=== PATIENT | male | born 1960 | race Caucasian/White ===

== ENCOUNTER 2018-11-26 09:13 | Inpatient (IN) | payer BC ==
[2018-11-26 09:47] LABS: Basophils % (A) 0 %; Eosinophils # (A) 0.2 k/uL (0-0.7); Eosinophils % (A) 3 %; HCT 42.5 % (39.0-53.0); HGB 14.2 gm/dL (13.0-17.5); Lymphocytes # (A) 2.4 k/uL (1.0-4.8); Lymphocytes % (A) 31 %; MCH 27.9 pg (25.0-35.0); MCHC 33.5 g/dL (31.0-37.0); MCV 83.3 fL (80.0-100.0); Mean Platelet Volume 6.9; Monocytes # (A) 0.5 k/uL (0-1.0); Monocytes % (A) 6 %; Neutrophils # (A) 4.5 k/uL (1.3-7.7); Neutrophils % (A) 58 %; Platelet Count 240 k/uL (150-450); RDW 13.9 % (11.5-15.5); WBC 7.8 k/uL (3.8-10.6)
[2018-11-26 09:54] LABS: Partial Thromboplastin Time 23.7 sec (22.0-30.0); Prothrombin Time 10.8 sec (9.0-12.0)
[2018-11-26 10:09] LABS: ALT 20 U/L (21-72); AST 27 U/L (17-59); African American GFR (CKD) >90 (>60 ml/min/1.73 sqM); Albumin 4.4 g/dL (3.5-5.0); Alkaline Phosphatase 102 U/L (38-126); Anion Gap 9 mmol/L; Blood Urea Nitrogen 21 mg/dL (9-20); Calcium 9.3 mg/dL (8.4-10.2); Carbon Dioxide 25 mmol/L (22-30); Chloride 105 mmol/L (98-107); Creatine Kinase 91 U/L (55-170); Glucose 101 mg/dL (74-99); Potassium 4.6 mmol/L (3.5-5.1); Sodium 139 mmol/L (137-145); Total Bilirubin 0.9 mg/dL (0.2-1.3); Total Protein 7.7 g/dL (6.3-8.2)
--- NOTE | 2018-11-26 10:14 | XR ---
EXAMINATION TYPE: XR chest 2V DATE OF EXAM: 11/26/2018 COMPARISON: None HISTORY: 58 year-old male shortness of breath, difficulty breathing TECHNIQUE: PA and lateral views FINDINGS: The cardiomediastinal silhouette, aorta, and pulmonary vasculature are within normal limits. Lungs an d pleural spaces are clear. Large surgical shailesh at the right glenoid. IMPRESSION: No acute cardiopulmonary process.
--- NOTE | 2018-11-26 10:28 | ED ---
SOB HPI - General Chief Complaint: Shortness of Breath Stated Complaint: Abn EKG/sent by PCP Time Seen by Provider: 11/26/18 09:19 Source: patient Mode of arrival: ambulatory Limitations: no limitations - History of Present Illness Initial Comments: This is a 58-year-old male with a benign past medical history who for the past 5 days had exertional dyspnea which seems be getting worse. He states he golfed yesterday and extremely dyspneic just getting on and off his golf cart. He also has some slight dizziness this morning. He was seen at his doctor's office and found have some T-wave inversions. Concern is for LAD involvement. He's had no chest pain no palpitations no other symptoms. - Related Data Home Medications Medication Instructions Recorded Confirmed Celecoxib [CeleBREX] 200 mg PO HS 11/26/18 11/26/18 Cyclobenzaprine [Flexeril] 10 mg PO DAILY 11/26/18 11/26/18 Dorzolamide-Timol 2.23%/0.68% 1 drop BOTH EYES BID 11/26/18 11/26/18 [Cosopt] Latanoprost [Xalatan 0.005%] 1 drop BOTH EYES HS 11/26/18 11/26/18 Allergies Allergy/AdvReac Type Severity Reaction Status Date / Time meperidine [From Demerol] Allergy Unknown Verified 11/26/18 09:19 Review of Systems ROS Statement: Those systems with pertinent positive or pertinent negative responses have been documented in the HPI. ROS Other: All systems not noted in ROS Statement are negative. Past Medical History Additional Past Medical History / Comment(s): ARTHRITIS. Past Surgical History: Appendectomy, Orthopedic Surgery Additional Past Surgical History / Comment(s): SHOULDER SURGERY, KNEE SURGERY Past Psychological History: No Psychological Hx Reported Smoking Status: Never smoker Past Alcohol Use History: Occasional Past Drug Use History: None Reported General Exam - General Exam Comments Initial Comments: This is a well-developed well-nourished awake alert oriented times 3 male Limitations: no limitations General appearance: alert, in no apparent distress Head exam: Present: atraumatic, normocephalic, normal inspection Eye exam: Present: normal appearance, PERRL, EOMI. Absent: scleral icterus, conjunctival injection, periorbital swelling ENT exam: Present: normal exam, mucous membranes moist Neck exam: Present: normal inspection. Absent: tenderness, meningismus, lymphadenopathy Respiratory exam: Present: normal lung sounds bilaterally. Absent: respiratory distress, wheezes, rales, rhonchi, stridor Cardiovascular Exam: Present: regular rate, normal rhythm, normal heart sounds. Absent: systolic murmur, diastolic murmur, rubs, gallop, clicks GI/Abdominal exam: Present: soft, normal bowel sounds. Absent: distended, ten derness, guarding, rebound, rigid Extremities exam: Present: normal inspection, full ROM, normal capillary refill. Absent: tenderness, pedal edema, joint swelling, calf tenderness Back exam: Present: normal inspection Neurological exam: Present: alert, oriented X3, CN II-XII intact Psychiatric exam: Present: normal affect, normal mood Skin exam: Present: warm, dry, intact, normal color. Absent: rash Course Vital Signs 11/26/18 09:16 Temperature 97.9 F Pulse Rate 93 Respiratory 18 Rate Blood Pressure 102/72 O2 Sat by Pulse 98 Oximetry Medical Decision Making - Medical Decision Making I did discuss the findings with the patient had previously discuss case with Dr. Young the patient will be admitted for evaluation by cardiology Dr. Young will notify Dr. Solorio of the admission. - Lab Data Result diagrams: 11/26/18 09:30 11/26/18 09:30 Lab Results 11/26/18 11/26/18 11/26/18 Range/Units 09:30 09:30 09:30 WBC 7.8 (3.8-10.6) k/uL RBC 5.10 (4.30-5.90) m/uL Hgb 14.2 (13.0-17.5) gm/dL Hct 42.5 (39.0-53.0) % MCV 83.3 (80.0-100.0) fL MCH 27.9 (25.0-35.0) pg MCHC 33.5 (31.0-37.0) g/dL RDW 13.9 (11.5-15.5) % Plt Count 240 (150-450) k/uL Neutrophils % 58 % Lymphocytes % 31 % Monocytes % 6 % Eosinophils % 3 % Basophils % 0 % Neutrophils # 4.5 (1.3-7.7) k/uL Lymphocytes # 2.4 (1.0-4.8) k/uL Monocytes # 0.5 (0-1.0) k/uL Eosinophils # 0.2 (0-0.7) k/uL Basophils # 0.0 (0-0.2) k/uL PT (9.0-12.0) sec INR (<1.2) APTT (22.0-30.0) sec Sodium 139 (137-145) mmol/L Potassium 4.6 (3.5-5.1) mmol/L Chloride 105 (98-107) mmol/L Carbon Dioxide 25 (22-30) mmol/L Anion Gap 9 mmol/L BUN 21 H (9-20) mg/dL Creatinine 1.05 (0.66-1.25) mg/dL Est GFR (CKD-EPI)AfAm >90 (>60 ml/min/1.73 sqM) Est GFR (CKD-EPI)NonAf 78 (>60 ml/min/1.73 sqM) Glucose 101 H (74-99) mg/dL Calcium 9.3 (8.4-10.2) mg/dL Magnesium 2.0 (1.6-2.3) mg/dL Total Bilirubin 0.9 (0.2-1.3) mg/dL AST 27 (17-59) U/L ALT 20 L (21-72) U/L Alkaline Phosphatase 102 (38-126) U/L Creatine Kinase 91 (55-170) U/L NT-Pro-B Natriuret Pep 1480 pg/mL Total Protein 7.7 (6.3-8.2) g/dL Albumin 4.4 (3.5-5.0) g/dL 11/26/18 Range/Units 09:30 WBC (3.8-10.6) k/uL RBC (4.30-5.90) m/uL Hgb (13.0-17.5) gm/dL Hct (39.0-53.0) % MCV (80.0-100.0) fL MCH (25.0-35.0) pg MCHC (31.0-37.0) g/dL RDW (11.5-15.5) % Plt Count (150-450) k/uL Neutrophils % % Lymphocytes % % Monocytes % % Eosinophils % % Basophils % % Neutrophils # (1.3-7.7) k/uL Lymphocytes # (1.0-4.8) k/uL Monocytes # (0-1.0) k/uL Eosinophils # (0-0.7) k/uL Basophils # (0-0.2) k/uL PT 10.8 (9.0-12.0) sec INR 1.0 (<1.2) APTT 23.7 (22.0-30.0) sec Sodium (137-145) mmol/L Potassium (3.5-5.1) mmol/L Chloride (98-107) mmol/L Carbon Dioxide (22-30) mmol/L Anion Gap mmol/L BUN (9-20) mg/dL Creatinine (0.66-1.25) mg/dL Est GFR (CKD-EPI)AfAm (>60 ml/min/1.73 sqM) Est GFR (CKD-EPI)NonAf (>60 ml/min/1.73 sqM) Glucose (74-99) mg/dL Calcium (8.4-10.2) mg/dL Magnesium (1.6-2.3) mg/dL Total Bilirubin (0.2-1.3) mg/dL AST (17-59) U/L ALT (21-72) U/L Alkaline Phosphatase (38-126) U/L Creatine Kinase (55-170) U/L NT-Pro-B Natriuret Pep pg/mL Total Protein (6.3-8.2) g/dL Albumin (3.5-5.0) g/dL - EKG Data -: EKG Interpreted by Ca EKG shows normal: sinus rhythm (Normal sinus rhythm 89. Interval 192 QRS duration 72 QT since QTC 392/[address]-T wave changes nonspecific anterior configuration) - Radiology Data Radiology results: report reviewed (I did review the imaging and report no acute findings.), image reviewed Disposition Clinical Impression: Unstable angina, Exertional dyspnea, Acute electrocardiogram changes Disposition: ADMITTED IP TO THIS [facility] Condition: Stable Referrals: Claus Young MD [Primary Care Provider] - 1-2 days
[2018-11-26] MEDS ORDERED: NITROGLYCERIN SL TABS 0.4 MG TAB SUBLINGUAL PRN (10:37)
[2018-11-26] MEDS ORDERED: HEPARIN SODIUM,PORCINE 5,000 UNIT/ML 1 ML VIAL IV ONE (10:37)
[2018-11-26] MEDS ORDERED: HEPARIN SOD,PORK IN 0.45% NACL 25,000 UNIT in 0.45% NACL 1 250ML.BAG IV SCH (10:45)
--- NOTE | 2018-11-26 10:51 | ED ---
Medical Decision Making - Lab Data Result diagrams: 11/26/18 09:30 11/26/18 09:30 Lab Results 11/26/18 11/26/18 11/26/18 Range/Units 09:30 09:30 09:30 WBC 7.8 (3.8-10.6) k/uL RBC 5.10 (4.30-5.90) m/uL Hgb 14.2 (13.0-17.5) gm/dL Hct 42.5 (39.0-53.0) % MCV 83.3 (80.0-100.0) fL MCH 27.9 (25.0-35.0) pg MCHC 33.5 (31.0-37.0) g/dL RDW 13.9 (11.5-15.5) % Plt Count 240 (150-450) k/uL Neutrophils % 58 % Lymphocytes % 31 % Monocytes % 6 % Eosinophils % 3 % Basophils % 0 % Neutrophils # 4.5 (1.3-7.7) k/uL Lymphocytes # 2.4 (1.0-4.8) k/uL Monocytes # 0.5 (0-1.0) k/uL Eosinophils # 0.2 (0-0.7) k/uL Basophils # 0.0 (0-0.2) k/uL PT (9.0-12.0) sec INR (<1.2) APTT (22.0-30.0) sec Sodium 139 (137-145) mmol/L Potassium 4.6 (3.5-5.1) mmol/L Chloride 105 (98-107) mmol/L Carbon Dioxide 25 (22-30) mmol/L Anion Gap 9 mmol/L BUN 21 H (9-20) mg/dL Creatinine 1.05 (0.66-1.25) mg/dL Est GFR (CKD-EPI)AfAm >90 (>60 ml/min/1.73 sqM) Est GFR (CKD-EPI)NonAf 78 (>60 ml/min/1.73 sqM) Glucose 101 H (74-99) mg/dL Calcium 9.3 (8.4-10.2) mg/dL Magnesium 2.0 (1.6-2.3) mg/dL Total Bilirubin 0.9 (0.2-1.3) mg/dL AST 27 (17-59) U/L ALT 20 L (21-72) U/L Alkaline Phosphatase 102 (38-126) U/L Creatine Kinase 91 (55-170) U/L Troponin I (0.000-0.034) ng/mL NT-Pro-B Natriuret Pep 1480 pg/mL Total Protein 7.7 (6.3-8.2) g/dL Albumin 4.4 (3.5-5.0) g/dL 11/26/18 11/26/18 Range/Units 09:30 09:30 WBC (3.8-10.6) k/uL RBC (4.30-5.90) m/uL Hgb (13.0-17.5) gm/dL Hct (39.0-53.0) % MCV (80.0-100.0) fL MCH (25.0-35.0) pg MCHC (31.0-37.0) g/dL RDW (11.5-15.5) % Plt Count (150-450) k/uL Neutrophils % % Lymphocytes % % Monocytes % % Eosinophils % % Basophils % % Neutrophils # (1.3-7.7) k/uL Lymphocytes # (1.0-4.8) k/uL Monocytes # (0-1.0) k/uL Eosinophils # (0-0.7) k/uL Basophils # (0-0.2) k/uL PT 10.8 (9.0-12.0) sec INR 1.0 (<1.2) APTT 23.7 (22.0-30.0) sec Sodium (137-145) mmol/L Potassium (3.5-5.1) mmol/L Chloride (98-107) mmol/L Carbon Dioxide (22-30) mmol/L Anion Gap mmol/L BUN (9-20) mg/dL Creatinine (0.66-1.25) mg/dL Est GFR (CKD-EPI)AfAm (>60 ml/min/1.73 sqM) Est GFR (CKD-EPI)NonAf (>60 ml/min/1.73 sqM) Glucose (74-99) mg/dL Calcium (8.4-10.2) mg/dL Magnesium (1.6-2.3) mg/dL Total Bilirubin (0.2-1.3) mg/dL AST (17-59) U/L ALT (21-72) U/L Alkaline Phosphatase (38-126) U/L Creatine Kinase (55-170) U/L Troponin I 0.084 H* (0.000-0.034) ng/mL NT-Pro-B Natriuret Pep pg/mL Total Protein (6.3-8.2) g/dL Albumin (3.5-5.0) g/dL Disposition Clinical Impression: Unstable angina, Exertional dyspnea, Acute electrocardiogram changes, Elevated troponin Disposition: ADMITTED IP TO THIS HOSP Condition: Stable
[2018-11-26] MEDS: SODIUM CHLORIDE 0.9% 1,000 ML IV SCH (12:07)
[2018-11-26] MEDS ORDERED: HEPARIN SODIUM,PORCINE 10,000 UNIT/ML 1 ML VIAL IV ONE (16:00)
[2018-11-26] MEDS ORDERED: HEPARIN SODIUM,PORCINE 5,000 UNIT/ML 1 ML VIAL IV PRN (16:00)
--- NOTE | 2018-11-26 16:00 | CT ---
EXAMINATION TYPE: CT angio chest DATE OF EXAM: 11/26/2018 3:44 PM COMPARISON: None HISTORY: Shortness of breath. CT DLP: 352.7 mGycm Automated exposure control for dose reduction was used. CONTRAST: CTA scan of the thorax is performed with IV Contrast, patient injected with 100 mL of Isovue 370, pul monary embolism protocol. . FINDINGS: LUNGS: There is a subpleural nodule left upper lobe measuring 2 mm. No pneumothorax or consolidative pneumonia. A bleb is seen within the left lower lobe. Correlate for mild COPD.. There is no pleural effusion or pneumothorax seen. The tracheobronchial tree is patent. MEDIASTINUM: There is bilateral large acute pulmonary embolism involving the main pulmonary arteries bilaterally extending in the secondary and distal branches. Report called to the patient's nurse. The re are no greater than 1 cm hilar or mediastinal lymph nodes. No pericardial effusion is seen. Aort a of normal caliber. OTHER: Degenerative change of the spine. Postsurgical change right shoulder. IMPRESSION: 1. Large burden acute bilateral pulmonary emboli involving the main pulmonary arteries and their seco ndary and distal branches bilaterally. Report immediately called to the patient's nurse. 2. Left apical subpleural 2 mm nodule too small to characterize likely benign.
[2018-11-26] MEDS: HEPARIN SOD,PORK IN 0.45% NACL 25,000 UNIT in 0.45% NACL 1 250ML.BAG IV SCH (16:14)
[2018-11-26 16:58] LABS: Glucose,Whole Blood 127 mg/dL (75-99)
--- NOTE | 2018-11-26 17:01 | P.CNPUL ---
History of Present Illness Consult date: 11/26/18 Requesting physician: Justin Solorio Reason for consult: dyspnea, abnormal CXR/CT Chief complaint: Exertional shortness of breath, dizziness History of present illness: This is a very pleasant 58-year-old gentleman who follows with Dr. Young as his primary care physician. He has a history of arthritis, insomnia. He is a lifelong nonsmoker. He presented to the emergency room this morning after a 5 day history of exertional shortness of breath that was getting progressively worse. He was out golfing yesterday and was getting quite short of breath even getting on and off his cough car. This morning he had some dizziness as well. He was seen by his PCP who performed EKG and found to have some T-wave inversions and was referred here to the emergency room for the same. No chest pain or palpitations. EKG revealed nonspecific ST and T wave abnormalities. He was admitted to the selective care unit for unstable angina with exertional shortness of breath. Troponin 0.084. 0.049. ProBNP 1480. D-dimer elevated at 6.89. CT angiogram was performed at 3:45 PM and revealed large burden acute bilateral pulmonary emboli involving the main pulmonary arteries and their secondary and distal branches bilaterally. We are consulted for the same. He is now seen urgently on the selective care unit. He is currently quite comfortable at rest. No worsening shortness of breath, cough or congestion. No hemoptysis. No chest pain, palpitations, lightheadedness or dizziness at the time. Maintaining good O2 saturations in the 90s on room air. Currently hemodynamically stable. His most recent travel was 2 months ago to [facility]. He does drive an hour and a half to work each day but is active after that. No recent surgery. No recent trauma. He feels he did have some left lower extremity edema a few days ago. No pain redness or warmth. No history of cancer. He does have a sister who has an unprovoked PE and is currently under treatment. He has been initiated on a heparin drip. Review of Systems REVIEW OF SYSTEMS: CONSTITUTIONAL: Denies any recent significant weight loss or weight gain. EYES: Denies change in vision. EARS, NOSE, MOUTH, THROAT: Denies headaches, denies sore throat. CARDIOVASCULAR: Denies chest pain, palpitations or syncopal episodes. RESPIRATORY: Positive for shortness of breath, cough, congestion no hemoptysis. GASTROINTESTINAL: Denies change in appetite, denies abdominal pain GENITOURINARY: Denies hematuria, denies infections. MUSKULOSKELETAL: Denies pain, denies swelling. INTEGUMENTARY: Denies rash, denies eczema. NEUROLOGICAL: Denies recent memory loss, no recent seizure activity. PSYCHIATRIC: Denies anxiety, denies depression. HEMATOLOGIC/LYMPHATIC: Denies anemia, denies enlarged lymph nodes. Past Medical History Past Medical History: Eye Disorder, Fibromyalgia, Hyperlipidemia, Osteoarthritis (OA), Skin Disorder Additional Past Medical History / Comment(s): ARTHRITIS. History of Any Multi-Drug Resistant Organisms: None Reported Past Surgical History: Appendectomy, Orthopedic Surgery Additional Past Surgical History / Comment(s): SHOULDER SURGERY, KNEE SURGERY Past Anesthesia/Blood Transfusion Reactions: No Reported Reaction Past Psychological History: No Psychological Hx Reported Smoking Status: Never smoker Past Alcohol Use History: Occasional Past Drug Use History: None Reported - Past Family History Father Family Medical History: CVA/TIA, Vascular Disorder Additional Family Medical History / Comment(s): Father at the age of 67yrs possibly from CVA, valvular disease. Mother Family Medical History: Coronary Artery Disease (CAD) Additional Family Medical History / Comment(s): Mother at the age of 84 yrs from "old age." Medications and Allergies Home Medications Medication Instructions Recorded Confirmed Type Celecoxib [CeleBREX] 200 mg PO HS 11/26/18 11/26/18 History Cyclobenzaprine [Flexeril] 10 mg PO DAILY 11/26/18 11/26/18 History Dorzolamide-Timol 2.23%/0.68% 1 drop BOTH EYES BID 11/26/18 11/26/18 History [Cosopt] Latanoprost [Xalatan 0.005%] 1 drop BOTH EYES HS 11/26/18 11/26/18 History Allergies Allergy/AdvReac Type Severity Reaction Status Date / Time meperidine [From Demerol] Allergy Unknown Verified 11/26/18 09:19 Physical Exam Vitals: Vital Signs Temp Pulse Pulse Resp BP BP Pulse Ox 11/26/18 15:06 98.9 F 11/26/18 15:03 85 18 129/73 91 L 11/26/18 12:00 97.8 F 94 16 106/62 97 11/26/18 11:02 93 18 107/77 96 11/26/18 09:16 97.9 F 93 18 102/72 98 Intake and Output 11/26/18 11/26/18 11/26/18 06:59 14:59 22:59 Intake Total 220 Balance 220 Intake: Oral 220 Other: Weight 87.09 kg GENERAL EXAM: Alert, comfortable in no apparent distress. On room air. HEAD: Normocephalic. EYES: Normal reaction of pupils, equal size. NOSE: Clear with pink turbinates. THROAT: No erythema or exudates. NECK: No masses, no JVD. CHEST: No chest wall deformity. LUNGS: Equal air entry with no crackles, wheeze, rhonchi or dullness. CVS: S1 and S2 normal with no audible murmur, regular rhythm. ABDOMEN: No hepatosplenomegaly, normal bowel sounds, no guarding or rigidity. SPINE: No scoliosis or deformity SKIN: No rashes CENTRAL NERVOUS SYSTEM: No focal deficits, tone is normal in all 4 extremities. EXTREMITIES: There is no peripheral edema. No clubbing, no cyanosis. Peripheral pulses are intact. Results - Laboratory Findings CBC and BMP: 11/26/18 09:30 11/26/18 09:30 PT/INR, D-dimer PT 10.8 sec (9.0-12.0) 11/26/18 09:30 INR 1.0 (<1.2) 11/26/18 09:30 D-Dimer 6.89 mg/L FEU (<0.60) H 11/26/18 09:30 Abnormal lab findings: Abnormal Labs 11/26/18 11/26/18 11/26/18 09:30 09:30 09:30 D-Dimer 6.89 H BUN 21 H Glucose 101 H ALT 20 L Troponin I 0.084 H* 11/26/18 15:08 D-Dimer BUN Glucose ALT Troponin I 0.049 H* - Diagnostic Findings Chest x-ray: image reviewed CT scan - chest: image reviewed Assessment and Plan Assessment: Impression: #1 Dyspnea on exertion secondary to large bilateral pulmonary emboli involving the main pulmonary arteries and their secondary and distal branches bilaterally. Initially appears unprovoked. Doppler of the lower extremities pending. Echocardiogram results pending. #2 Troponin leak. #3 History of insomnia. #4 Arthritis. Plan: The patient was seen and evaluated by Dr. Christopher. CAT scan reviewed. We will give additional heparin bolus and change him to a high intensity protocol. Obtain Doppler of the lower extremities. Obtain echocardiogram results stat to determine if there is any right ventricular strain. Will need outpatient workup for any underlying blood dyscrasias. He does have 1 sister with an unprovoked PE currently under treatment. Transfer to the intensive care unit for closer monitoring, if there is any deterioration in his clinical status may need TPA versus transfer for EKOS. We will continue to follow make further recommendations based on his clinical status. I, the cosigning physician, performed a history & physical examination of the patient. Lungs sounds are clear. Maintaining good O2 saturations in the 90s on room air. I discussed the assessment and plan of care with my nurse practit vesna, Gianna Silva. I attest to the above note as dictated by her. Time with Patient: Greater than 30
--- NOTE | 2018-11-26 18:09 | ECHOF ---
Referral Reason:Exertional dyspnea, EKG change MEASUREMENTS -------- HEIGHT: 170.2 cm WEIGHT: 87.1 kg BP: RVIDd: 4.2 cm (< 3.3) IVSd: 1.1 cm (0.6 - 1.1) LVIDd: 3.1 cm (3.9 - 5.3) LVPWd: 1.0 cm (0.6 - 1.1) IVSs: 1.7 cm LVIDs: 1.8 cm LVPWs: 1.7 cm Ao Diam: 3.2 cm (2.0 - 3.7) AV Cusp: 2.2 cm (1.5 - 2.6) LA Diam: 3.0 cm (2.7 - 3.8) MV EXCURSION: 10.412 mm (> 18.000) MV EF SLOPE: 56 mm/s (70 - 150) EPSS: 0.7 cm MV E Delonte: 0.83 m/s MV DecT: 222 ms MV A Delonte: 0.32 m/s MV E/A Ratio: 2.60 RAP: 5.00 mmHg RVSP: 29.08 mmHg FINDINGS -------- Sinus rhythm. This was a technically good study. The left ventricular size is normal. Left ventricular wall thickness is normal. Overall left vent ricular systolic function is normal with, an EF between 55 - 60 %. The right ventricle is severely enlarged. The right ventricular systolic function is mildly impaire d. The left atrial size is normal. The right atrial size is normal. Interatrial and interventricular septum intact. The aortic valve is trileaflet, and appears structurally normal. No aortic stenosis or regurgitation. The mitral valve is normal. Mild mitral regurgitation is present. Mild tricuspid regurgitation present. Right ventricular systolic pressure is normal at < 35 mmHg. The right ventricular systolic pressure, as measured by Doppler, is 29.08mmHg. There is no pulmonic regurgitation present. The aortic root size is normal. Normal inferior vena cava with normal inspiratory collapse consistent with estimated right atrial pre ssure of 5 mmHg. There is no pericardial effusion. CONCLUSIONS -------- 1. Sinus rhythm. 2. This was a technically good study. 3. The left ventricular size is normal. 4. Left ventricular wall thickness is normal. 5. Overall left ventricular systolic function is normal with, an EF between 55 - 60 %. 6. The right ventricle is severely enlarged. 7. The right ventricular systolic function is mildly impaired. 8. The left atrial size is normal. 9. The aortic valve is trileaflet, and appears structurally normal. No aortic stenosis or regurgitati on. 10. Mild mitral regurgitation is present. 11. Mild tricuspid regurgitation present. 12. Right ventricular systolic pressure is normal at < 35 mmHg. 13. There is no pulmonic regurgitation present. 14. The aortic root size is normal. 15. Normal inferior vena cava with normal inspiratory collapse consistent with estimated right atrial pressure of 5 mmHg. 16. There is no pericardial effusion. RESIDENT BUYER: Kathryn Toro RDCS
--- NOTE | 2018-11-26 18:14 | P.HPIM ---
History of Present Illness H&P Date: 11/26/18 Chief Complaint: Non-ST DC, shortness of breath, hyperlipidemia, hypertension, hyperglycemia 58-year-old male one of Dr. Young's patient with past medical history of lower back pain osteoarthritis and fibromyalgia who has been doing well until the last a few days when he developed to have significant worsening dyspnea and shortness of breath with exertion has been become much worse patient had more symptoms yesterday while he was golfing and having to get in and out of the golf cart was making him more symptomatic. Was seen by Dr. Young EKG showed T waves inversion was concern about acute DC patient was sent to the emergency department CK with troponin was mildly elevated the waves inversion found in EKG patient will be heparinize consult cardiology patient be admitted and might need to go for heart catheter. Shortly after accepting admission surprisingly his d-dimer came back very elevated and PT was sent for CTA of the lung finding consistent with very large bilateral pulmonary embolism. Patient was started on heparin drip and he is hospitalized in the ICU will be seen pulmonary Doppler of the lower extremity be done to exclude the possibility of DVT as well otherwise need a reason for PE whether workup for malignancy are coagulopathy is indicated. Review of Systems CONSTITUTIONAL: Well-developed no acute respiratory distress. EYES: No icterus sclerae, no conjunctivitis. EARS, NOSE, MOUTH, THROAT, and FACE: No sore throat, lymphadenopathy, carotid bruits or deformity. RESPIRATORY: Positive shortness of breath no cough or wheezes. CARDIOVASCULAR: Positive PND orthopnea palpitations. GASTROINTESTINAL: No Abd pain, Nausea or vomiting, no Diarrhea or constipation, No GI Bleed, no distention or masses. GENITOURINARY: Negative for Hematuria or UTI, no kidney stones. INTEGUMENT/BREAST: Negative for any muscular injury with mild osteoarthritis.. HEMATOLOGIC/LYMPHATIC: Negative for bleed or purpura. MUSCULOSKELTAL: Negative for Myalgia or arthralgia. NEURLOGICAL: No LOC, Sz or syncope, blurred vision dizziness or abnormality.. BEHAVIORAL/PSYCH: Negative. ENDOCRINE: Negative. Past Medical History Additional Past Medical History / Comment(s): ARTHRITIS. Past Surgical History: Appendectomy, Orthopedic Surgery Additional Past Surgical History / Comment(s): SHOULDER SURGERY, KNEE SURGERY Past Psychological History: No Psychological Hx Reported Smoking Status: Never smoker Past Alcohol Use History: Occasional Past Drug Use History: None Reported - Past Family History Father Family Medical History: CVA/TIA, Vascular Disorder Additional Family Medical History / Comment(s): Father at the age of 67yrs possibly from CVA, valvular disease. Mother Family Medical History: Coronary Artery Disease (CAD) Additional Family Medical History / Comment(s): Mother at the age of 84 yrs from "old age." Medications and Allergies Home Medications Medication Instructions Recorded Confirmed Type Celecoxib [CeleBREX] 200 mg PO HS 11/26/18 11/26/18 History Cyclobenzaprine [Flexeril] 10 mg PO DAILY 11/26/18 11/26/18 History Dorzolamide-Timol 2.23%/0.68% 1 drop BOTH EYES BID 11/26/18 11/26/18 History [Cosopt] Latanoprost [Xalatan 0.005%] 1 drop BOTH EYES HS 11/26/18 11/26/18 History Allergies Allergy/AdvReac Type Severity Reaction Status Date / Time meperidine [From Demerol] Allergy Unknown Verified 11/26/18 09:19 Physical Exam Vitals: Vital Signs Temp Pulse Resp BP Pulse Ox 11/26/18 11:02 93 18 107/77 96 11/26/18 09:16 97.9 F 93 18 102/72 98 Intake and Output 11/25/18 11/26/18 11/26/18 22:59 06:59 14:59 Other: Weight 87.09 kg General Appearance: Alert, cooperative, mild distress, appears stated age. Neck HEENT: Supple, no lymphadenopathy, no thyroid enlargement, no carotid bruits. Lungs: Clear to auscultation without crackles or wheezes no rhonchi, no deformity. Chest Wall: Decrease expansion with deep inspiration no tenderness and no deformity was found on exam, no costochondral pain or discomfort. Heart: Regular rate and rhythm, S1, S2, positive S3 , no murmur, rub or gallop. Back: Symmetric, no curvature, ROM normal, no CVA tenderness. Abdomen: Soft, non-tender, bowel sounds active all four quadrants, no masses, no organomegaly. Extremities: Extremities normal, atraumatic, but trace edema. Pulses: 2+ and symmetric. Skin: Skin color, texture, tugor normal, no rashes or lesions. Neurologic: Alert oriented x3 cranial nerves II through XII intact, no motor deficit, no abnormal balance or gait. Results CBC & Chem 7: 11/26/18 09:30 11/26/18 09:30 Labs: Abnormal Lab Results - Last 24 Hours (Table) 11/26/18 11/26/18 Range/Units 09:30 09:30 BUN 21 H (9-20) mg/dL Glucose 101 H (74-99) mg/dL ALT 20 L (21-72) U/L Troponin I 0.084 H* (0.000-0.034) ng/mL Thrombosis Risk Factor Assmnt - DVT/VTE Prophylaxis DVT/VTE Prophylaxis: Pharmacologic Prophylaxis ordered, Mechanical Prophylaxis ordered Assessment and Plan Plan: 1 acute bilateral pulmonary embolism: Not clear source at this point and risk factor patient will be seen pulmonary, Doppler lower extremities will be done, further workup for coagulopathy will be done as well. 2 acute non-ST DC: Patient be hospitalized, CK with troponin 3 be done, cardiology consultation, echocardiogram and patient most likely will be going for cardiac catheter for diagnostic and possible need for angioplasty and stent placement of there is any blockage. 3 shortness of breath: Most likely from acute DC causing mild decrease in heart function and mild fluid retention causing his symptoms, kind continue nitro, diuretics and oxygen. 4 hyperlipidemia: Was not any medication we'll consider starting patient on statin like Lipitor 40 mg daily. 5 hyperglycemia: Patient is on diet control Accu-Chek with sliding scales coverage will be done and if needed small dose of metformin might be beneficial. 6 chronic lower back pain: Has been on muscle relaxer and Celebrex on an as- needed basis. 7 GI prophylaxis: Patient will be on Pepcid 20 mg twice a day as needed. 8 DVT prophylaxis: Patient will be on heparin drip for now. CODE STATUS: Full code. Admit patient to inpatient status for more than 2 nights.
--- NOTE | 2018-11-26 18:37 | P.CRDCN ---
History of Present Illness Consult date: 11/26/18 History of present illness: This is a 58-year-old gentleman with history of arthritis and insomnia has been experiencing episodes of shortness of breath since last Friday. Initially the episodes were mild but yesterday while he was playing golf he noticed more shortness of breath. The act of getting out of the cart and hitting the ball would make him short of breath. Denied any chest pain. He didn't feel dizzy when he bent over. He saw his primary care physician this morning who sent him to the emergency room. In the emergency room patient had evaluation with EKG, cardiac enzymes and also computed tomography scan of the chest. Cardiac enzymes showed mildly abnormal troponins. Computed tomography scan consistent with bilateral pulmonary emboli. Echocardiogram showed dilated right ventricle, but the right ventricular pressure seemed to be within normal limits. At the time of my examination patient is very comfortable in bed and doesn't appear to be in acute distress. No evidence of any JVD. His heart rate is in the 80s and patient is in sinus rhythm. At this point it appears that patient could be treated with anticoagulation therapy. Patient is also being seen by celebrity chef entrepreneur media personality. We'll continue current management. His troponin values are slightly abnormal, Most probably from pulmonary emboli. Review of Systems As per the chart Past Medical History Past Medical History: Eye Disorder, Fibromyalgia, Hyperlipidemia, Osteoarthritis (OA), Skin Disorder Additional Past Medical History / Comment(s): ARTHRITIS. History of Any Multi-Drug Resistant Organisms: None Reported Past Surgical History: Appendectomy, Orthopedic Surgery Additional Past Surgical History / Comment(s): SHOULDER SURGERY, KNEE SURGERY Past Anesthesia/Blood Transfusion Reactions: No Reported Reaction Past Psychological History: No Psychological Hx Reported Smoking Status: Never smoker Past Alcohol Use History: Occasional Past Drug Use History: None Reported - Past Family History Father Family Medical History: CVA/TIA, Vascular Disorder Additional Family Medical History / Comment(s): Father at the age of 67yrs possibly from CVA, valvular disease. Mother Family Medical History: Coronary Artery Disease (CAD) Additional Family Medical History / Comment(s): Mother at the age of 84 yrs from "old age." Medications and Allergies Home Medications Medication Instructions Recorded Confirmed Type Celecoxib [CeleBREX] 200 mg PO HS 11/26/18 11/26/18 History Cyclobenzaprine [Flexeril] 10 mg PO DAILY 11/26/18 11/26/18 History Dorzolamide-Timol 2.23%/0.68% 1 drop BOTH EYES BID 11/26/18 11/26/18 History [Cosopt] Latanoprost [Xalatan 0.005%] 1 drop BOTH EYES HS 11/26/18 11/26/18 History Allergies Allergy/AdvReac Type Severity Reaction Status Date / Time meperidine [From Demerol] Allergy Unknown Verified 11/26/18 09:19 Physical Exam Vitals: Vital Signs Temp Pulse Pulse Resp BP BP Pulse Ox 11/26/18 18:00 88 8 L 97/70 94 L 11/26/18 17:00 97.8 F 96 23 119/84 94 L 11/26/18 16:49 100 26 H 95 11/26/18 15:06 98.9 F 11/26/18 15:03 85 18 129/73 91 L 11/26/18 12:00 97.8 F 94 16 106/62 97 11/26/18 11:02 93 18 107/77 96 11/26/18 09:16 97.9 F 93 18 102/72 98 Intake and Output 11/26/18 11/26/18 11/26/18 06:59 14:59 22:59 Intake Total 220 40 Output Total 500 Balance 220 -460 Intake: IV 40 Sodium Chloride 0.9% 1, 40 000 ml @ 20 mls/hr IV . Q24H [facility] Rx#:[id number] Oral 220 Output: Urine 500 Other: Weight 87.09 kg GENERAL EXAM: Patient is alert and oriented and doesn't appear to be in any acute distress HEENT: Normocephalic. Normal reaction of pupils, equal size, normal range of extraocular motion. No erythema or exudates in the throat. NECK: No masses, no nuchal rigidity. CHEST: No chest wall deformity. LUNGS: Equal air entry with no crackles or wheeze. HEART: S1 and S2 normal with no audible mumurs or gallops. Regular rhythm, femorals equal on both sides.. ABDOMEN: No hepatosplenomegaly, normal bowel sounds, no guarding or rigidity. SKIN: No rashes CENTRAL NERVOUS SYSTEM: No focal deficits. EXTREMITIES: No cyanosis, clubbing or edema. Results 11/26/18 09:30 11/26/18 09:30 Cardiac Enzymes 11/26/18 11/26/18 11/26/18 Range/Units 09:30 09:30 15:08 AST 27 (17-59) U/L Troponin I 0.084 H* 0.049 H* (0.000-0.034) ng/mL Coagulation 11/26/18 Range/Units 09:30 PT 10.8 (9.0-12.0) sec APTT 23.7 (22.0-30.0) sec CBC 11/26/18 Range/Units 09:30 WBC 7.8 (3.8-10.6) k/uL RBC 5.10 (4.30-5.90) m/uL Hgb 14.2 (13.0-17.5) gm/dL Hct 42.5 (39.0-53.0) % Plt Count 240 (150-450) k/uL Comprehensive Metabolic Panel 11/26/18 Range/Units 09:30 Sodium 139 (137-145) mmol/L Potassium 4.6 (3.5-5.1) mmol/L Chloride 105 (98-107) mmol/L Carbon Dioxide 25 (22-30) mmol/L BUN 21 H (9-20) mg/dL Creatinine 1.05 (0.66-1.25) mg/dL Glucose 101 H (74-99) mg/dL Calcium 9.3 (8.4-10.2) mg/dL AST 27 (17-59) U/L ALT 20 L (21-72) U/L Alkaline Phosphatase 102 (38-126) U/L Total Protein 7.7 (6.3-8.2) g/dL Albumin 4.4 (3.5-5.0) g/dL Current Medications Generic Name Dose Route Start Last Admin Trade Name Freq PRN Reason Stop Dose Admin Aspirin 325 mg 11/27/18 09:00 Aspirin PO DAILY [facility] Cyclobenzaprine HCl 10 mg 11/27/18 09:00 Flexeril PO DAILY [facility] Dorzolamide/Timolol 1 drops 11/26/18 21:00 Cosopt BOTH EYES BID [facility]UD Heparin Sodium (Porcine) 0 unit 11/26/18 16:00 Heparin IV PER PROTOCOL PRN Low PTT Protocol Sodium Chloride 1,000 mls @ 20 mls/hr 11/26/18 10:45 11/26/18 12:07 Saline 0.9% IV 20 mls/hr .Q24H [facility] Administration Heparin Sodium/Sodium Chloride 250 mls @ 15.676 mls/hr 11/26/18 16:00 11/26/18 16:14 25,000 unit/ Sodium Chloride IV 18 units/kg/hr .[id number] [facility]UD 15.676 mls/hr Administration Protocol 18 UNITS/KG/HR Latanoprost 1 drops 11/26/18 21:00 Xalatan 0.005% BOTH EYES HS BUD Meloxicam 7.5 mg 11/26/18 21:00 Mobic PO HS BUD Nitroglycerin 0.4 mg 11/26/18 10:37 Nitrostat SUBLINGUAL Q5M PRN Chest Pain Intake and Output 11/26/18 11/26/18 11/26/18 06:59 14:59 22:59 Intake Total 220 40 Output Total 500 Balance 220 -460 Intake: IV 40 Sodium Chloride 0.9% 1, 40 000 ml @ 20 mls/hr IV . Q24H [facility] Rx#:[id number] Oral 220 Output: Urine 500 Other: Weight 87.09 kg Patient Weight 11/27/18 06:59 Weight 87.09 kg 11/26/18 09:30 11/26/18 09:30 EKG Interpretations (text) Sinus rhythm with mild nonspecific ST-T changes Assessment and Plan (1) Bilateral pulmonary embolism Current Visit: Yes Status: Acute Code(s): I26.99 - OTHER PULMONARY EMBOLISM WITHOUT ACUTE COR PULMONALE SNOMED Code(s): 68480667 (2) Elevated troponin Current Visit: Yes Status: Acute Code(s): R74.8 - ABNORMAL LEVELS OF OTHER SERUM ENZYMES SNOMED Code(s): 721180212 (3) Exertional dyspnea Current Visit: Yes Status: Acute Code(s): R06.09 - OTHER FORMS OF DYSPNEA SNOMED Code(s): 47226438 Plan: Patient will be continued on anticoagulation therapy with heparin. Patient is known to have venous duplex study of the legs. Hematology consult may be considered to rule out any secondary causes of hypercoagulability. Patient denied any recent travels. Further recommendations depend upon clinical course
[2018-11-26] MEDS ORDERED: NALOXONE 0.4 MG/ML 1 ML VIAL IV PRN (21:43)
[2018-11-26] MEDS: MELOXICAM 7.5 MG TAB PO SCH (22:04)
[2018-11-26] MEDS: DORZOLAMIDE-TIMOLOL 2.23%/0.68 10ML BTL BOTH EYES SCH (22:05)
[2018-11-26] MEDS: LATANOPROST 0.005% OPHTH DROPS 2.5 ML BTL BOTH EYES SCH (22:05)
[2018-11-27 05:46] LABS: Basophils % (A) 0 %; Eosinophils # (A) 0.2 k/uL (0-0.7); Eosinophils % (A) 3 %; HCT 39.2 % (39.0-53.0); HGB 13.2 gm/dL (13.0-17.5); Lymphocytes # (A) 2.4 k/uL (1.0-4.8); Lymphocytes % (A) 36 %; MCH 28.3 pg (25.0-35.0); MCHC 33.8 g/dL (31.0-37.0); MCV 83.8 fL (80.0-100.0); Mean Platelet Volume 7.4; Monocytes # (A) 0.4 k/uL (0-1.0); Monocytes % (A) 6 %; Neutrophils # (A) 3.6 k/uL (1.3-7.7); Neutrophils % (A) 53 %; Platelet Count 208 k/uL (150-450); RBC 4.67 m/uL (4.30-5.90); RDW 13.9 % (11.5-15.5); WBC 6.7 k/uL (3.8-10.6)
[2018-11-27 05:59] LABS: African American GFR (CKD) >90 (>60 ml/min/1.73 sqM); Anion Gap 7 mmol/L; Blood Urea Nitrogen 23 mg/dL (9-20); Calcium 8.7 mg/dL (8.4-10.2); Carbon Dioxide 24 mmol/L (22-30); Chloride 109 mmol/L (98-107); Cholesterol 187 mg/dL (<200); Glucose 94 mg/dL (74-99); HDL Cholesterol 41 mg/dL (40-60); LDL Cholesterol,Calculated 129 mg/dL (0-99); Potassium 4.4 mmol/L (3.5-5.1); Sodium 140 mmol/L (137-145); Triglycerides 85 mg/dL (<150)
--- NOTE | 2018-11-27 08:39 | US ---
EXAMINATION TYPE: US venous doppler duplex LE DATE OF EXAM: 11/27/2018 8:08 AM COMPARISON: CT dated 11/26/2018 CLINICAL HISTORY: positive PEs. SIDE PERFORMED: Bilateral TECHNIQUE: The lower extremity deep venous system is examined utilizing real time linear array sonog shelly with graded compression, doppler sonography and color-flow sonography. VESSELS IMAGED: Common Femoral Vein Deep Femoral Vein Greater Saphenous Vein * Femoral Vein Popliteal Vein Small Saphenous Vein * Proximal Calf Veins (* superficial vessels) Grayscale, color doppler, spectral doppler imaging performed of the deep veins of the lower extremiti es. There is normal flow, compressibility, vascular waveforms. Right Leg: Negative for DVT Left Leg: Positive for non occluding DVT in distal Popliteal Vein and one of 2 calf veins, and is po sitive for occluding DVT in remaining upper calf vein. IMPRESSION: Positive exam. Nonoccluding deep venous thrombosis in the distal left popliteal vein and a single calf pain with occluding deep venous thrombosis in the remainder of the calf veins. There i s known pulmonary embolus communicated with the patient's nurse on 11/26/2018.
[2018-11-27] MEDS: CYCLOBENZAPRINE 10 MG TAB PO SCH ×2 (08:50→22:13)
[2018-11-27] MEDS: HEPARIN SOD,PORK IN 0.45% NACL 25,000 UNIT in 0.45% NACL 1 250ML.BAG IV SCH (08:51)
[2018-11-27] MEDS: ASPIRIN 325 MG TAB PO SCH (08:59)
[2018-11-27] MEDS: DORZOLAMIDE-TIMOLOL 2.23%/0.68 10ML BTL BOTH EYES SCH ×2 (08:59→22:08)
[2018-11-27] MEDS: PANTOPRAZOLE 40 MG/10 ML VIAL IV SCH (08:59)
--- NOTE | 2018-11-27 12:08 | P.PN ---
Subjective Progress Note Date: 11/27/18 58-year-old male one of Dr. Young's patient with past medical history of lower back pain osteoarthritis and fibromyalgia who has been doing well until the last a few days when he developed to have significant worsening dyspnea and shortness of breath with exertion has been become much worse patient had more symptoms yesterday while he was golfing and having to get in and out of the golf cart was making him more symptomatic. Was seen by Dr. Young EKG showed T waves inversion was concern about acute IN patient was sent to the emergency department CK with troponin was mildly elevated the waves inversion found in EKG patient will be heparinize consult cardiology patient be admitted and might need to go for heart catheter. Shortly after accepting admission surprisingly his d-dimer came back very elevated and PT was sent for CTA of the lung finding consistent with very large bilateral pulmonary embolism. Patient was started on heparin drip and he is hospitalized in the ICU will be seen pulmonary Doppler of the lower extremity be done to exclude the possibility of DVT as well otherwise need a reason for PE whether workup for malignancy are coagulopathy is indicated. patient examined bedside. Resting comfortably without any shortness of breath or chest pain or dizziness. He noticed one week ago swelling in his left lower extremity and shortness of breath got worse 2 days ago seeking admission. Patient does have bilateral pulmonary embolism with the positive nonoccluding popliteal vein DVT in the left. 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 He is otherwise active. He has a sister with known history of pulmonary embolism with the factor positive for hypercoagulability. Heme oncology consulted for further evaluation. Continue heparin drip Review of system Constitutional: Denies chills, Denies fever, Denies lethargy, Denies malaise, Denies poor appetite, Denies weakness, Denies weight loss Eyes: denies decreased vision, denies diplopia, denies discharge, denies pain Ears: deny: decreased hearing Ears, nose, mouth and throat: Denies dental pain, Denies headache, Denies nasal discharge, Denies nose pain Cardiovascular: Denies chest pain, Denies decreased exercise tolerance, Denies edema, Denies high blood pressure, Denies irregular heart beat, Denies palpitations, Denies paroxysmal nocturnal dyspnea, Denies rapid heart beat, Denies shortness of breath Respiratory: Denies congestion, Denies cough, Denies cough with sputum, Denies dyspnea, Denies home oxygen, Denies wheezing Gastrointestinal: Denies abdominal pain, Denies change in bowel habits, Denies coffee ground emesis, Denies early satiety, Denies excessive gas, Denies heartburn, Denies hematemesis, Denies hematochezia, Denies loss of appetite, Denies nausea, Denies vomiting Genitourinary: Denies dysuria, Denies flank pain, Denies kidney stones, Denies menorrhagia, Denies urgency, Denies urinary frequency Musculoskeletal: Denies gait dysfunction, Denies limitation of motion, Denies morning stiffness, Denies muscle cramps Hematologic/Lymphatic: Denies easy bruising, Denies lymphadenopathy Objective - Vital Signs Vital signs: Vital Signs Temp 98.1 F 11/27/18 04:00 Pulse 73 11/27/18 10:00 Resp 23 11/27/18 10:00 BP 101/69 11/27/18 10:00 Pulse Ox 95 11/27/18 11:00 Intake & Output 11/26/18 11/27/18 11/27/18 18:59 06:59 18:59 Intake Total 302.848 329.706 110.165 Output Total 500 1300 150 Balance -197.152 -970.294 -39.835 Weight 87.09 kg 118.4 kg Intake: IV 40 240 60 Sodium Chloride 0.9% 1, 40 240 60 000 ml @ 20 mls/hr IV . Q24H [facility] Rx#:[id number] Intake, IV Titration 42.848 89.706 50.165 Amount Heparin Sod,Pork in 0.45% 42.848 89.706 50.165 NaCl 25,000 unit In 0.45 % NaCl 1 250ml.bag @ 18 UNITS/KG/HR 15.676 mls/hr IV .[id number] [facility] Rx#: [id number] Oral 220 Output: Urine 500 1300 150 Other: Voiding Method Urinal Urinal - Exam - Constitutional General appearance: cooperative, no acute distress, obese - EENT Eyes: anicteric sclerae, PERRLA, normal appearance ENT: hearing grossly normal - Neck Neck: no lymphadenopathy, normal ROM, no other, no rigidity, no stridor, no thyromegaly - Respiratory Respiratory: bilateral: CTA, negative: diminished, dullness, rales, rhonchi - Cardiovascular Rhythm: regular Heart sounds: normal: S1, S2 Abnormal Heart Sounds: no systolic murmur, no diastolic murmur, no rub, no S3 Gallop, no S4 Gallop, no click, no other - Gastrointestinal General gastrointestinal: normal bowel sounds, soft - Integumentary Integumentary: no rash - Neurologic Neurologic: CNII-XII intact - Musculoskeletal Musculoskeletal: gait normal, strength equal bilaterally - Psychiatric Psychiatric: A&O x's 3, appropriate affect - Labs CBC & Chem 7: 11/27/18 05:21 11/27/18 05:21 Labs: Abnormal Lab Results - Last 24 Hours (Table) 11/26/18 11/26/18 11/26/18 Range/Units 09:30 15:08 16:55 APTT (22.0-30.0) sec D-Dimer 6.89 H (<0.60) mg/L FEU Chloride (98-107) mmol/L BUN (9-20) mg/dL POC Glucose (mg/dL) 127 H (75-99) mg/dL Troponin I 0.049 H* (0.000-0.034) ng/mL LDL Cholesterol, Calc (0-99) mg/dL 11/26/18 11/26/18 11/27/18 Range/Units 18:00 21:00 01:40 APTT >200.0 H* 120.8 H* (22.0-30.0) sec D-Dimer (<0.60) mg/L FEU Chloride (98-107) mmol/L BUN (9-20) mg/dL POC Glucose (mg/dL) (75-99) mg/dL Troponin I 0.037 H* (0.000-0.034) ng/mL LDL Cholesterol, Calc (0-99) mg/dL 11/27/18 11/27/18 Range/Units 05:21 09:32 APTT 49.8 H (22.0-30.0) sec D-Dimer (<0.60) mg/L FEU Chloride 109 H (98-107) mmol/L BUN 23 H (9-20) mg/dL POC Glucose (mg/dL) (75-99) mg/dL Troponin I (0.000-0.034) ng/mL LDL Cholesterol, Calc 129 H (0-99) mg/dL Assessment and Plan Plan: 1 acute bilateral pulmonary embolism: No risks factors. 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 Continue IV heparin. Doppler lower extremity positive for DVT in the left popliteal vein. Hematology consult for hypercoagulability, positive history of PE in sister 2 acute tropenemia, likely type II IN stable troponin downtrending from 0.842 --- 0.037 3 shortness of breath: Most likely from PE. Improved 4 hyper lipidemia: Was not any medication we'll consider starting patient on statin like Lipitor 40 mg daily. 5 hyperglycemia: Patient is on diet control Accu-Chek with sliding scales coverage will be done and if needed small dose of metformin might be beneficial. 6 chronic lower back pain: Has been on muscle relaxer and Celebrex on an as- needed basis. 7 GI prophylaxis: Patient will be on Pepcid 20 mg twice a day as needed. 8 DVT prophylaxis: Patient will be on heparin drip for now. CODE STATUS: Full code.
--- NOTE | 2018-11-27 15:23 | P.PN ---
Subjective Progress Note Date: 11/27/18 Principal diagnosis: Acute bilateral pulmonary embolism This is a very pleasant 58-year-old gentleman who follows with Dr. Young as his primary care physician. He has a history of arthritis, insomnia. He is a lifelong nonsmoker. He presented to the emergency room this morning after a 5 day history of exertional shortness of breath that was getting progressively worse. He was out golfing yesterday and was getting quite short of breath even getting on and off his cough car. This morning he had some dizziness as well. He was seen by his PCP who performed EKG and found to have some T-wave inversions and was referred here to the emergency room for the same. No chest pain or palpitations. EKG revealed nonspecific ST and T wave abnormalities. He was admitted to the selective care unit for unstable angina with exertional shortness of breath. Troponin 0.084. 0.049. ProBNP 1480. D-dimer elevated at 6.89. CT angiogram was performed at 3:45 PM and revealed large burden acute bilateral pulmonary emboli involving the main pulmonary arteries and their secondary and distal branches bilaterally. We are consulted for the same. He is now seen urgently on the selective care unit. He is currently quite comfortable at rest. No worsening shortness of breath, cough or congestion. No hemoptysis. No chest pain, palpitations, lightheadedness or dizziness at the ti me. Maintaining good O2 saturations in the 90s on room air. Currently hemodynamically stable. His most recent travel was 2 months ago to [facility]. He does drive an hour and a half to work each day but is active after that. No recent surgery. No recent trauma. He feels he did have some left lower extremity edema a few days ago. No pain redness or warmth. No history of cancer. He does have a sister who has an unprovoked PE and is currently under treatment. He has been initiated on a heparin drip. Patient was reevaluated today on 11/27/2018, remains on heparin, remains hemodynamically stable, patient is relatively asymptomatic, no shortness of breath at rest, no chest pain, no fever, no chills, no nausea no vomiting no abdominal pain. Patient is doing surprisingly good and better than expected considering his significantly abnormal CT of the chest upon presentation. His heparin is therapeutic. Hence considering the patient is that stable, we'll arrange for the patient to be transferred out of the ICU to a monitor bed on selective if available. All labs were reviewed, CBC is normal platelets are 208, PTT is 50. Objective - Vital Signs Vital signs: Vital Signs Temp 98.1 F 11/27/18 04:00 Pulse 73 11/27/18 10:00 Resp 23 11/27/18 10:00 BP 101/69 11/27/18 10:00 Pulse Ox 95 11/27/18 11:00 Intake & Output 11/26/18 11/27/18 11/27/18 18:59 06:59 18:59 Intake Total 302.848 329.706 110.165 Output Total 500 1300 150 Balance -197.152 -970.294 -39.835 Weight 87.09 kg 118.4 kg Intake: IV 40 240 60 Sodium Chloride 0.9% 1, 40 240 60 000 ml @ 20 mls/hr IV . Q24H BUD Rx#:[id number] Intake, IV Titration 42.848 89.706 50.165 Amount Heparin Sod,Pork in 0.45% 42.848 89.706 50.165 NaCl 25,000 unit In 0.45 % NaCl 1 250ml.bag @ 18 UNITS/KG/HR 15.676 mls/hr IV .[id number] BUD Rx#: [id number] Oral 220 Output: Urine 500 1300 150 Other: Voiding Method Urinal Urinal - Exam Physical Exam: Revealed a 58-year-old white male in no distress. Head: Atraumatic, normocephalic. HEENT:[Neck is supple.] [No neck masses.] [No thyromegaly.] [No JVD.] Chest: [Clear throughout, no crackles, no rhonchi, no wheezes.] Cardiac Exam: [Normal S1 and S2, no S3 gallop, no murmur.] Abdomen: [Soft, nontender, no megaly, no rebound, no guarding, normal bowel sounds.] Extremities: [No clubbing, no edema, no cyanosis.] Neurological Exam: [No focal neurologic deficit.] Psychiatric: Normal mood affect and mental status examination. Lymphatics: No lymphadenopathy. Skin: No rashes. - Labs CBC & Chem 7: 11/27/18 05:21 11/27/18 05:21 Labs: Abnormal Lab Results - Last 24 Hours (Table) 11/26/18 11/26/18 11/26/18 Range/Units 15:08 16:55 18:00 APTT >200.0 H* (22.0-30.0) sec Chloride (98-107) mmol/L BUN (9-20) mg/dL POC Glucose (mg/dL) 127 H (75-99) mg/dL Troponin I 0.049 H* (0.000-0.034) ng/mL LDL Cholesterol, Calc (0-99) mg/dL 11/26/18 11/27/18 11/27/18 Range/Units 21:00 01:40 05:21 APTT 120.8 H* (22.0-30.0) sec Chloride 109 H (98-107) mmol/L BUN 23 H (9-20) mg/dL POC Glucose (mg/dL) (75-99) mg/dL Troponin I 0.037 H* (0.000-0.034) ng/mL LDL Cholesterol, Calc 129 H (0-99) mg/dL 11/27/18 Range/Units 09:32 APTT 49.8 H (22.0-30.0) sec Chloride (98-107) mmol/L BUN (9-20) mg/dL POC Glucose (mg/dL) (75-99) mg/dL Troponin I (0.000-0.034) ng/mL LDL Cholesterol, Calc (0-99) mg/dL Assessment and Plan Assessment: #1 acute bilateral pulmonary embolism, unprovoked. #2 Troponin leak. This is secondary to pulmonary embolism. Echocardiogram showed no evidence of ventricular strain, right ventricular systolic pressure was noted to be less than 35. #3 History of insomnia. #4 Arthritis. Recommendation: Continue heparin, patient could be transferred out of the ICU today, will eventually switch the patient to Xarelto in the next 24 hours, and possibly discharge the patient home over the weekend. Must have outpatient follow-up, and considering his family history, considering this is unprovoked, patient would have to take anticoagulation therapy lifetime. Time with Patient: Less than 30
--- NOTE | 2018-11-27 15:37 | P.PN ---
Subjective Progress Note Date: 11/27/18 This is a 58-year-old gentleman who was admitted with multiple bilateral pulmonary emboli. Patient is clinically stable. Doesn't appear to be in distress. His in sinus rhythm with controlled heart rate. Venous duplex study showed clot in the popliteal system on the left side. A she is on heparin. Hem atology consult is requested. His lungs are clear. Heart is regular. No JVD or peripheral edema Objective - Vital Signs Vital signs: Vital Signs Temp 98.1 F 11/27/18 04:00 Pulse 73 11/27/18 10:00 Resp 23 11/27/18 10:00 BP 101/69 11/27/18 10:00 Pulse Ox 95 11/27/18 11:00 Intake & Output 11/26/18 11/27/18 11/27/18 18:59 06:59 18:59 Intake Total 302.848 329.706 110.165 Output Total 500 1300 150 Balance -197.152 -970.294 -39.835 Weight 87.09 kg 118.4 kg Intake: IV 40 240 60 Sodium Chloride 0.9% 1, 40 240 60 000 ml @ 20 mls/hr IV . Q24H BUD Rx#:[id number] Intake, IV Titration 42.848 89.706 50.165 Amount Heparin Sod,Pork in 0.45% 42.848 89.706 50.165 NaCl 25,000 unit In 0.45 % NaCl 1 250ml.bag @ 18 UNITS/KG/HR 15.676 mls/hr IV .[id number] BUD Rx#: [id number] Oral 220 Output: Urine 500 1300 150 Other: Voiding Method Urinal Urinal - Exam GENERAL EXAM: Patient is alert and oriented and doesn't appear to be in any acute distress HEENT: Normocephalic. Normal reaction of pupils, equal size, normal range of extraocular motion. No erythema or exudates in the throat. NECK: No masses, no nuchal rigidity. CHEST: No chest wall deformity. LUNGS: Equal air entry with no crackles or wheeze. HEART: S1 and S2 normal with no audible mumurs or gallops. Regular rhythm, femorals equal on both sides.. ABDOMEN: No hepatosplenomegaly, normal bowel sounds, no guarding or rigidity. SKIN: No rashes CENTRAL NERVOUS SYSTEM: No focal deficits. EXTREMITIES: No cyanosis, clubbing or edema. - Labs CBC & Chem 7: 11/27/18 05:21 11/27/18 05:21 Labs: Abnormal Lab Results - Last 24 Hours (Table) 11/26/18 11/26/18 11/26/18 Range/Units 15:08 16:55 18:00 APTT >200.0 H* (22.0-30.0) sec Chloride (98-107) mmol/L BUN (9-20) mg/dL POC Glucose (mg/dL) 127 H (75-99) mg/dL Troponin I 0.049 H* (0.000-0.034) ng/mL LDL Cholesterol, Calc (0-99) mg/dL 11/26/18 11/27/18 11/27/18 Range/Units 21:00 01:40 05:21 APTT 120.8 H* (22.0-30.0) sec Chloride 109 H (98-107) mmol/L BUN 23 H (9-20) mg/dL POC Glucose (mg/dL) (75-99) mg/dL Troponin I 0.037 H* (0.000-0.034) ng/mL LDL Cholesterol, Calc 129 H (0-99) mg/dL 11/27/18 Range/Units 09:32 APTT 49.8 H (22.0-30.0) sec Chloride (98-107) mmol/L BUN (9-20) mg/dL POC Glucose (mg/dL) (75-99) mg/dL Troponin I (0.000-0.034) ng/mL LDL Cholesterol, Calc (0-99) mg/dL Assessment and Plan (1) Bilateral pulmonary embolism Current Visit: Yes Status: Acute Code(s): I26.99 - OTHER PULMONARY EMBOLISM WITHOUT ACUTE COR PULMONALE SNOMED Code(s): 98829270 (2) Elevated troponin Current Visit: Yes Status: Acute Code(s): R74.8 - ABNORMAL LEVELS OF OTHER SERUM ENZYMES SNOMED Code(s): 255600285 (3) Exertional dyspnea Current Visit: Yes Status: Acute Code(s): R06.09 - OTHER FORMS OF DYSPNEA SNOMED Code(s): 23324817 Plan: Patient is critically stable. Continue anticoagulation therapy. Hematology consult. May switch to oral anticoagulation in about 24-48 hours.
--- NOTE | 2018-11-27 16:45 | P.CONS ---
History of Present Illness - Reason for Consult Consult date: 11/27/18 Unprovoked Pulmonary Embolism Requesting physician: Zeferino Lopez - Chief Complaint SOB - History of Present Illness Harpreet is a 58-year-old male with a past medical history osteoarthritis who over the past few days developed dyspnea and shortness of breath. He claims it was worse with exertion. He was seen in his PCP office, Dr. Young, and a EKG was performed revealing T waves inversion. The concernfor an acute DE had referred the patient to emergency department for further work-up. CTA was performed revealing a very large bilateral pulmonary embolism. Patient was started on heparin drip and he is hospitalized. Consult placed for hematology to further evaluate. Doppler of the lower extremity be done to exclude the possibility of DVT. Review of Systems A 14 point review of systems was assessed and completed and are all negative except for HPI Past Medical History Past Medical History: Eye Disorder, Fibromyalgia, Hyperlipidemia, Osteoarthritis (OA), Skin Disorder Additional Past Medical History / Comment(s): ARTHRITIS. History of Any Multi-Drug Resistant Organisms: None Reported Past Surgical History: Appendectomy, Orthopedic Surgery Additional Past Surgical History / Comment(s): SHOULDER SURGERY, KNEE SURGERY Past Anesthesia/Blood Transfusion Reactions: No Reported Reaction Past Psychological History: No Psychological Hx Reported Smoking Status: Never smoker Past Alcohol Use History: Occasional Past Drug Use History: None Reported - Past Family History Father Family Medical History: CVA/TIA, Vascular Disorder Additional Family Medical History / Comment(s): Father at the age of 67yrs possibly from CVA, valvular disease. Mother Family Medical History: Coronary Artery Disease (CAD) Additional Family Medical History / Comment(s): Mother at the age of 84 yrs from "old age." Medications and Allergies Home Medications Medication Instructions Recorded Confirmed Type Celecoxib [CeleBREX] 200 mg PO HS 11/26/18 11/26/18 History Cyclobenzaprine [Flexeril] 10 mg PO DAILY 11/26/18 11/26/18 History Dorzolamide-Timol 2.23%/0.68% 1 drop BOTH EYES BID 11/26/18 11/26/18 History [Cosopt] Latanoprost [Xalatan 0.005%] 1 drop BOTH EYES HS 11/26/18 11/26/18 History Allergies Allergy/AdvReac Type Severity Reaction Status Date / Time meperidine [From [facility]] Allergy Unknown Verified 11/26/18 09:19 Physical Exam Vitals: Vital Signs Temp Pulse Resp BP Pulse Ox 11/27/18 16:00 97.9 F 76 16 108/69 97 11/27/18 12:00 98.4 F 73 22 119/71 95 11/27/18 11:00 95 11/27/18 10:00 73 23 101/69 96 11/27/18 09:00 73 21 105/70 93 L 11/27/18 08:00 76 20 89/57 94 L 11/27/18 07:00 70 15 81/50 93 L 11/27/18 06:30 77 18 81/50 93 L 11/27/18 06:00 71 16 82/50 94 L 11/27/18 05:00 71 8 L 89/59 93 L 11/27/18 04:00 98.1 F 74 12 89/59 92 L 11/27/18 03:03 15 11/27/18 03:00 86 15 103/65 94 L 11/27/18 02:30 75 13 103/65 92 L 11/27/18 02:00 76 8 L 91/56 93 L 11/27/18 01:30 78 20 91/56 90 L 11/27/18 01:00 80 20 89/68 92 L 11/27/18 00:30 79 20 89/68 92 L 11/27/18 00:00 98 F 79 17 91/71 92 L 11/26/18 23:30 78 18 91/71 90 L 11/26/18 23:00 80 18 101/70 90 L 11/26/18 22:30 85 19 101/70 91 L 11/26/18 22:00 84 22 100/71 93 L 11/26/18 21:30 91 22 100/71 94 L 11/26/18 21:20 96 23 100/71 94 L 11/26/18 21:00 101 H 28 H 94/60 94 L 11/26/18 20:47 95 11/26/18 20:30 96 25 H 94/60 95 11/26/18 20:00 97.2 F L 100 29 H 90/60 95 11/26/18 19:00 105 H 17 90/60 94 L 11/26/18 18:00 88 8 L 97/70 94 L 11/26/18 17:00 97.8 F 96 23 119/84 94 L 11/26/18 16:49 100 26 H 95 Intake and Output 11/27/18 11/27/18 11/27/18 06:59 14:59 22:59 Intake Total 249.706 210.165 Output Total 700 150 Balance -450.294 60.165 Intake: IV 160 160 Sodium Chloride 0.9% 1, 160 160 000 ml @ 20 mls/hr IV . Q24H BUD Rx#:[id number] Intake, IV Titration 89.706 50.165 Amount Heparin Sod,Pork in 0.45% 89.706 50.165 NaCl 25,000 unit In 0.45 % NaCl 1 250ml.bag @ 18 UNITS/KG/HR 15.676 mls/hr IV .[id number] BUD Rx#: [id number] Output: Urine 700 150 Other: Voiding Method Urinal Urinal Urinal # Voids 2 Weight 118.4 kg General: Alert and Oriented x3, No Acute Distress Head: Normocytic, Atraumatic Neck: Supple Mouth: No Lesions, No Thrush Eyes: Non-sclerotic No Palpable cervical, supraclavicular, axillary adenopathy Heart: Tachy Lungs: Increased effort, diminished Abdomen: Soft, Non-Distended, Non-Tended, BSx4 Extremities: No Edema, Equal Strength Neurological: No Focal Defects: No sensory or motor deficits noted Psych: Calm and cooperative Results CBC & Chem 7: 11/27/18 05:21 11/27/18 05:21 Labs: Abnormal Lab Results - Last 24 Hours (Table) 11/26/18 11/26/18 11/26/18 Range/Units 16:55 18:00 21:00 APTT >200.0 H* (22.0-30.0) sec Chloride (98-107) mmol/L BUN (9-20) mg/dL POC Glucose (mg/dL) 127 H (75-99) mg/dL Troponin I 0.037 H* (0.000-0.034) ng/mL LDL Cholesterol, Calc (0-99) mg/dL 11/27/18 11/27/18 11/27/18 Range/Units 01:40 05:21 09:32 APTT 120.8 H* 49.8 H (22.0-30.0) sec Chloride 109 H (98-107) mmol/L BUN 23 H (9-20) mg/dL POC Glucose (mg/dL) (75-99) mg/dL Troponin I (0.000-0.034) ng/mL LDL Cholesterol, Calc 129 H (0-99) mg/dL CT scan - chest: report reviewed Assessment and Plan Plan: 1. Unprovoked Pulmonary Embolism: - Heparin Drip to continue and after 24-48 hours convert to DOAC - Plan Lifelong anticoagulation - Outpatient Hypercoagulable work-up. - Follow-up with Dr. Singleton in 4-6 weeks after discharge Physician Attest: I have completed the full history and physical and developed the complete impression and plan, agree with dictation, dictated as a scribe
[2018-11-27] MEDS: SODIUM CHLORIDE 0.9% 1,000 ML IV SCH (21:52)
[2018-11-27] MEDS: MELOXICAM 7.5 MG TAB PO SCH (22:14)
[2018-11-27] MEDS: LATANOPROST 0.005% OPHTH DROPS 2.5 ML BTL BOTH EYES SCH (22:15)
[2018-11-28] MEDS: HEPARIN SOD,PORK IN 0.45% NACL 25,000 UNIT in 0.45% NACL 1 250ML.BAG IV SCH (04:10)
[2018-11-28] MEDS: SODIUM CHLORIDE 0.9% 1,000 ML IV SCH (04:10)
[2018-11-28 05:05] LABS: Basophils % (A) 0 %; Eosinophils # (A) 0.2 k/uL (0-0.7); Eosinophils % (A) 3 %; HCT 39.1 % (39.0-53.0); HGB 12.8 gm/dL (13.0-17.5); Lymphocytes # (A) 2.1 k/uL (1.0-4.8); Lymphocytes % (A) 39 %; MCH 27.8 pg (25.0-35.0); MCHC 32.7 g/dL (31.0-37.0); Mean Platelet Volume 6.6; Monocytes # (A) 0.4 k/uL (0-1.0); Monocytes % (A) 7 %; Neutrophils # (A) 2.6 k/uL (1.3-7.7); Neutrophils % (A) 48 %; Platelet Count 193 k/uL (150-450); RDW 13.7 % (11.5-15.5); WBC 5.5 k/uL (3.8-10.6)
[2018-11-28 05:24] LABS: African American GFR (CKD) >90 (>60 ml/min/1.73 sqM); Anion Gap 7 mmol/L; Blood Urea Nitrogen 19 mg/dL (9-20); Calcium 8.8 mg/dL (8.4-10.2); Carbon Dioxide 26 mmol/L (22-30); Chloride 106 mmol/L (98-107); Glucose 95 mg/dL (74-99); Potassium 4.3 mmol/L (3.5-5.1); Sodium 139 mmol/L (137-145)
[2018-11-28] MEDS: ASPIRIN 325 MG TAB PO SCH (08:16)
[2018-11-28] MEDS: PANTOPRAZOLE 40 MG/10 ML VIAL IV SCH (08:16)
[2018-11-28] MEDS: DORZOLAMIDE-TIMOLOL 2.23%/0.68 10ML BTL BOTH EYES SCH ×2 (08:17→21:18)
--- NOTE | 2018-11-28 09:42 | PN ---
PROGRESS NOTE Harpreet Proctor came in with what seems to be a significant pulmonary embolism. He came in short of breath almost 24 hours after his initial episode of shortness of breath occurred. He is hemodynamically stable, breathing well. Oxygen saturation is good. Echo clearly revealed right ventricular strain, but patient is comfortable now. Venous Doppler performed yesterday revealed DVT in the left popliteal vein and also in all the calf veins. The patient is on intravenous heparin and his PTT is therapeutic at this time. He is resting comfortably without symptoms. He does have a family history of hypercoagulable state and he has been seen by Dr. Singleton already who will perform the workup. He is resting comfortably without symptoms. PHYSICAL EXAMINATION: Blood pressure is 111/70, pulse rate is 70 per minute, sinus. There is JVD that is evident. S1-S2 heard normally. No significant murmurs. Lungs revealed decent air entry. Abdomen is soft, nontender. Lower extremities reveal palpable pulses. No edema. Central nervous system is normal. IMPRESSION: 1. Acute pulmonary embolism with right ventricular strain on heparin, hemodynamically stable. 2. Family history of pulmonary embolism. 3. Probable hypercoagulable state, being investigated. RECOMMENDATIONS: Plan is to continue intravenous heparin, keep him in a therapeutic range for another 24 hours and then switch him to oral agents. The patient was considering a trip to [place] by air in the next few days and I suggested that he should cancel this trip. We will continue full heparinization and repeat an echocardiogram on Friday. MMODL / IJN: [id number] /
--- NOTE | 2018-11-28 11:21 | P.PN ---
Subjective Progress Note Date: 11/28/18 Principal diagnosis: Acute bilateral pulmonary embolism This is a very pleasant 58-year-old gentleman who follows with Dr. Young as his primary care physician. He has a history of arthritis, insomnia. He is a lifelong nonsmoker. He presented to the emergency room this morning after a 5 day history of exertional shortness of breath that was getting progressively worse. He was out golfing yesterday and was getting quite short of breath even getting on and off his cough car. This morning he had some dizziness as well. He was seen by his PCP who performed EKG and found to have some T-wave inversions and was referred here to the emergency room for the same. No chest pain or palpitations. EKG revealed nonspecific ST and T wave abnormalities. He was admitted to the selective care unit for unstable angina with exertional shortness of breath. Troponin 0.084. 0.049. ProBNP 1480. D-dimer elevated at 6.89. CT angiogram was performed at 3:45 PM and revealed large burden acute bilateral pulmonary emboli involving the main pulmonary arteries and their secondary and distal branches bilaterally. We are consulted for the same. He is now seen urgently on the selective care unit. He is currently quite comfortable at rest. No worsening shortness of breath, cough or congestion. No hemoptysis. No chest pain, palpitations, lightheadedness or dizziness at the ti me. Maintaining good O2 saturations in the 90s on room air. Currently hemodynamically stable. His most recent travel was 2 months ago to [facility]. He does drive an hour and a half to work each day but is active after that. No recent surgery. No recent trauma. He feels he did have some left lower extremity edema a few days ago. No pain redness or warmth. No history of cancer. He does have a sister who has an unprovoked PE and is currently under treatment. He has been initiated on a heparin drip. Patient was reevaluated today on 11/27/2018, remains on heparin, remains hemodynamically stable, patient is relatively asymptomatic, no shortness of breath at rest, no chest pain, no fever, no chills, no nausea no vomiting no abdominal pain. Patient is doing surprisingly good and better than expected considering his significantly abnormal CT of the chest upon presentation. His heparin is therapeutic. Hence considering the patient is that stable, we'll arrange for the patient to be transferred out of the ICU to a monitor bed on selective if available. All labs were reviewed, CBC is normal platelets are 208, PTT is 50. Reevaluated today on 11/28/2018, patient remains in the ICU as an overflow from selective, asymptomatic, no shortness of breath no cough no wheezing no chest pain. Remains on heparin, PTT is therapeutic. Patient is doing much better clinically than expected considering his significant abnormality on the CT of the chest. CBC is normal platelets are 193 PTT is 47.5 electrolytes and renal profile are normal. Objective - Vital Signs Vital signs: Vital Signs Temp 98.1 F 11/28/18 08:00 Pulse 79 11/28/18 08:05 Resp 13 11/28/18 08:05 BP 111/71 11/28/18 08:00 Pulse Ox 95 11/28/18 08:00 Intake & Output 11/27/18 11/28/18 11/28/18 18:59 06:59 18:59 Intake Total 210.165 567.206 10 Output Total 150 350 Balance 60.165 217.206 10 Intake: IV 160 350 10 Invasive Line 1 30 10 Sodium Chloride 0.9% 1, 160 320 000 ml @ 20 mls/hr IV . Q24H BUD Rx#:[id number] Intake, IV Titration 50.165 217.206 Amount Heparin Sod,Pork in 0.45% 50.165 217.206 NaCl 25,000 unit In 0.45 % NaCl 1 250ml.bag @ 18 UNITS/KG/HR 15.676 mls/hr IV .[id number] BUD Rx#: [id number] Output: Urine 150 350 Other: Voiding Method Urinal Urinal Urinal # Voids 2 1 - Exam Physical Exam: Revealed a 58-year-old white male in no distress. Head: Atraumatic, normocephalic. HEENT:[Neck is supple.] [No neck masses.] [No thyromegaly.] [No JVD.] Chest: [Clear throughout, no crackles, no rhonchi, no wheezes.] Cardiac Exam: [Normal S1 and S2, no S3 gallop, no murmur.] Abdomen: [Soft, nontender, no megaly, no rebound, no guarding, normal bowel so unds.] Extremities: [No clubbing, no edema, no cyanosis.] Neurological Exam: [No focal neurologic deficit.] Psychiatric: Normal mood affect and mental status examination. Lymphatics: No lymphadenopathy. Skin: No rashes. - Labs CBC & Chem 7: 11/28/18 04:37 11/28/18 04:37 Labs: Abnormal Lab Results - Last 24 Hours (Table) 11/28/18 11/28/18 Range/Units 04:37 04:37 Hgb 12.8 L (13.0-17.5) gm/dL APTT 47.5 H (22.0-30.0) sec Assessment and Plan Assessment: #1 acute bilateral pulmonary embolism, unprovoked. #2 Troponin leak. This is secondary to pulmonary embolism. Echocardiogram showed no evidence of ventricular strain, right ventricular systolic pressure was noted to be less than 35. #3 History of insomnia. #4 Arthritis. Recommendation: Continue heparin, consider starting the patient on Xarelto in the next 24 hours, and possibly discharge home in the next 24 hours. Considering the clinical stability, I see no reason for repeating his echocardiogram at this point. Patient will be cleared from my perspective for discharge planning in the next 24 hours assuming no change in his clinical status between now and then. And follow-up on outpatient basis. Patient was made aware that he will need to be on antiplatelet ventilation therapy lifetime. Time with Patient: Less than 30
--- NOTE | 2018-11-28 11:56 | P.PN ---
Subjective Progress Note Date: 11/28/18 58-year-old male one of Dr. Young's patient with past medical history of lower back pain osteoarthritis and fibromyalgia who has been doing well until the last a few days when he developed to have significant worsening dyspnea and shortness of breath with exertion has been become much worse patient had more symptoms yesterday while he was golfing and having to get in and out of the golf cart was making him more symptomatic. Was seen by Dr. Young EKG showed T waves inversion was concern about acute AR patient was sent to the emergency department CK with troponin was mildly elevated the waves inversion found in EKG patient will be heparinize consult cardiology patient be admitted and might need to go for heart catheter. Shortly after accepting admission surprisingly his d-dimer came back very elevated and PT was sent for CTA of the lung finding consistent with very large bilateral pulmonary embolism. Patient was started on heparin drip and he is hospitalized in the ICU will be seen pulmonary Doppler of the lower extremity be done to exclude the possibility of DVT as well otherwise need a reason for PE whether workup for malignancy are coagulopathy is indicated. 11/27 patient examined bedside. Resting comfortably without any shortness of breath or chest pain or dizziness. He noticed one week ago swelling in his left lower extremity and shortness of breath got worse 2 days ago seeking admission. Patient does have bilateral pulmonary embolism with the positive nonoccluding popliteal vein DVT in the left. 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 He is otherwise active. He has a sister with known history of pulmonary embolism with the factor positive for hypercoagulability. Heme oncology consulted for further evaluation. Continue heparin drip 11/28: Patient is examined sitting up in a chair resting comfortably without any shortness of breath or complaints of chest pain or dizziness. Patient is tolerating heparin drip without any difficulties. Patient denies any pain to the lower extremity. Discussed with patient that the need for hyper-coagulant workup will be required in outpatient setting. Patient did state that he had traveled to [facility] august and had sat on a plane for 5 hours and a few hours in a car at that time. However he did not notice any shortness of breath until Friday night. Patient's sister does have MTHF, however hematology does not feel there is correlation. Review of system Constitutional: Denies chills, Denies fever, Denies lethargy, Denies malaise, Denies poor appetite, Denies weakness, Denies weight loss Eyes: denies decreased vision, denies diplopia, denies discharge, denies pain Ears: deny: decreased hearing Ears, nose, mouth and throat: Denies dental pain, Denies headache, Denies nasal discharge, Denies nose pain Cardiovascular: Denies chest pain, Denies decreased exercise tolerance, Denies edema, Denies high blood pressure, Denies irregular heart beat, Denies palpitations, Denies paroxysmal nocturnal dyspnea, Denies rapid heart beat, Denies shortness of breath Respiratory: Denies congestion, Denies cough, Denies cough with sputum, Denies dyspnea, Denies home oxygen, Denies wheezing Gastrointestinal: Denies abdominal pain, Denies change in bowel habits, Denies coffee ground emesis, Denies early satiety, Denies excessive gas, Denies heartburn, Denies hematemesis, Denies hematochezia, Denies loss of appetite, Denies nausea, Denies vomiting Genitourinary: Denies dysuria, Denies flank pain, Denies kidney stones, Denies menorrhagia, Denies urgency, Denies urinary frequency Musculoskeletal: Denies gait dysfunction, Denies limitation of motion, Denies morning stiffness, Denies muscle cramps Hematologic/Lymphatic: Denies easy bruising, Denies lymphadenopathy Objective - Vital Signs Vital signs: Vital Signs Temp 98.1 F 11/28/18 08:00 Pulse 79 11/28/18 08:05 Resp 13 11/28/18 08:05 BP 111/71 11/28/18 08:00 Pulse Ox 95 11/28/18 08:00 Intake & Output 11/27/18 11/28/18 11/28/18 18:59 06:59 18:59 Intake Total 210.165 567.206 10 Output Total 150 350 Balance 60.165 217.206 10 Intake: IV 160 350 10 Invasive Line 1 30 10 Sodium Chloride 0.9% 1, 160 320 000 ml @ 20 mls/hr IV . Q24H [facility] Rx#:[id number] Intake, IV Titration 50.165 217.206 Amount Heparin Sod,Pork in 0.45% 50.165 217.206 NaCl 25,000 unit In 0.45 % NaCl 1 250ml.bag @ 18 UNITS/KG/HR 15.676 mls/hr IV .[id number] [facility] Rx#: [id number] Output: Urine 150 350 Other: Voiding Method Urinal Urinal Urinal # Voids 2 1 - Exam General Appearance: Alert, cooperative, no distress, appears stated age. Neck HEENT: Supple, no lymphadenopathy, no thyroid enlargement, no carotid bruits. Lungs: Clear to auscultation without crackles or wheezes no rhonchi, no deformity. Chest Wall: Chest wall normal expansion with deep inspiration no tenderness and no deformity was found on exam, no costochondral pain or discomfort. Heart: Regular rate and rhythm, S1, S2 normal, no murmur, rub or gallop. Back: Symmetric, no curvature, ROM normal, no CVA tenderness. Abdomen: Soft, non-tender, no rebound or rigidity, no hepatosplenomegaly. Extremities: Extremities normal, atraumatic, no cyanosis or edema. Pulses: 2+ and symmetric. Skin: Skin color, texture, tugor normal, no rashes or lesions. Neurologic: Alert oriented x3 cranial nerves II through XII intact, no motor deficit, no abnormal balance or gait - Labs CBC & Chem 7: 11/28/18 04:37 11/28/18 04:37 Labs: Abnormal Lab Results - Last 24 Hours (Table) 11/28/18 11/28/18 Range/Units 04:37 04:37 Hgb 12.8 L (13.0-17.5) gm/dL APTT 47.5 H (22.0-30.0) sec Assessment and Plan Plan: 1. acute bilateral pulmonary embolism: No risks factors. 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 Continue IV heparin. Doppler lower extremity positive for DVT in the left popliteal vein. Hematology consult for hypercoagulability, positive history of PE in sister 2. acute tropenemia, likely type II AR stable troponin downtrending from 0.842 to 0.037 3. shortness of breath: Most likely from PE. Improved 4. hyper lipidemia: Was not any medication we'll consider starting patient on statin like Lipitor 40 mg daily. 5. hyperglycemia: Patient is on diet control Accu-Chek with sliding scales coverage will be done and if needed small dose of metformin might be beneficial. 6. chronic lower back pain: Has been on muscle relaxer and Celebrex on an as- needed basis. Discussed the need to stop Celebrex in the future. 7. GI prophylaxis: Patient will be on Pepcid 20 mg twice a day as needed. 8. DVT prophylaxis: Patient will be on heparin drip for now. CODE STATUS: Full code. Impression and plan of care have been directed as dictated by the signing physician. May Mccarty nurse practitioner acting as scribe for signing physician.
[2018-11-28] MEDS ORDERED: MAGNESIUM HYDROXIDE 2,400 MG/10 ML CUP PO PRN (14:18)
[2018-11-28] MEDS: MELOXICAM 7.5 MG TAB PO SCH (21:16)
[2018-11-28] MEDS: CYCLOBENZAPRINE 10 MG TAB PO SCH (21:17)
[2018-11-28] MEDS: LATANOPROST 0.005% OPHTH DROPS 2.5 ML BTL BOTH EYES SCH (21:18)
[2018-11-29] MEDS: HEPARIN SOD,PORK IN 0.45% NACL 25,000 UNIT in 0.45% NACL 1 250ML.BAG IV SCH ×2 (05:11→05:44)
[2018-11-29 05:14] LABS: Basophils % (A) 0 %; Eosinophils # (A) 0.2 k/uL (0-0.7); Eosinophils % (A) 3 %; HCT 37.6 % (39.0-53.0); HGB 12.3 gm/dL (13.0-17.5); Lymphocytes % (A) 38 %; MCH 27.8 pg (25.0-35.0); MCHC 32.7 g/dL (31.0-37.0); MCV 85.1 fL (80.0-100.0); Mean Platelet Volume 6.8; Monocytes # (A) 0.3 k/uL (0-1.0); Monocytes % (A) 6 %; Neutrophils # (A) 2.6 k/uL (1.3-7.7); Neutrophils % (A) 50 %; Platelet Count 204 k/uL (150-450); RBC 4.42 m/uL (4.30-5.90); RDW 13.9 % (11.5-15.5); WBC 5.3 k/uL (3.8-10.6)
[2018-11-29 05:39] LABS: African American GFR (CKD) >90 (>60 ml/min/1.73 sqM); Anion Gap 6 mmol/L; Blood Urea Nitrogen 16 mg/dL (9-20); Calcium 8.7 mg/dL (8.4-10.2); Carbon Dioxide 26 mmol/L (22-30); Chloride 106 mmol/L (98-107); Glucose 91 mg/dL (74-99); Potassium 4.1 mmol/L (3.5-5.1); Sodium 138 mmol/L (137-145)
[2018-11-29] MEDS: PANTOPRAZOLE 40 MG TABLET PO SCH (06:15)
[2018-11-29] MEDS: DORZOLAMIDE-TIMOLOL 2.23%/0.68 10ML BTL BOTH EYES SCH ×2 (08:23→20:36)
[2018-11-29] MEDS: ASPIRIN 325 MG TAB PO SCH (08:23)
[2018-11-29] MEDS ORDERED: MAGNESIUM HYDROXIDE 2,400 MG/10 ML CUP PO PRN (08:31)
[2018-11-29] MEDS: SODIUM CHLORIDE 0.9% 1,000 ML IV SCH (10:30)
--- NOTE | 2018-11-29 11:03 | P.PN ---
Subjective Progress Note Date: 11/29/18 58-year-old male one of Dr. Young's patient with past medical history of lower back pain osteoarthritis and fibromyalgia who has been doing well until the last a few days when he developed to have significant worsening dyspnea and shortness of breath with exertion has been become much worse patient had more symptoms yesterday while he was golfing and having to get in and out of the golf cart was making him more symptomatic. Was seen by Dr. Young EKG showed T waves inversion was concern about acute NM patient was sent to the emergency department CK with troponin was mildly elevated the waves inversion found in EKG patient will be heparinize consult cardiology patient be admitted and might need to go for heart catheter. Shortly after accepting admission surprisingly his d-dimer came back very elevated and PT was sent for CTA of the lung finding consistent with very large bilateral pulmonary embolism. Patient was started on heparin drip and he is hospitalized in the ICU will be seen pulmonary Doppler of the lower extremity be done to exclude the possibility of DVT as well otherwise need a reason for PE whether workup for malignancy are coagulopathy is indicated. 11/27 patient examined bedside. Resting comfortably without any shortness of breath or chest pain or dizziness. He noticed one week ago swelling in his left lower extremity and shortness of breath got worse 2 days ago seeking admission. Patient does have bilateral pulmonary embolism with the positive nonoccluding popliteal vein DVT in the left. 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 He has a sister with known history of pulmonary embolism with the factor positive for hypercoagulability. Heme oncology consulted for further evaluation. Continue heparin drip 11/28: Patient is examined sitting up in a chair resting comfortably without any shortness of breath or complaints of chest pain or dizziness. Patient is tolerating heparin drip without any difficulties. Patient denies any pain to the lower extremity. Discussed with patient that the need for hyper-coagulant workup will be required in outpatient setting. Patient did state that he had traveled to [facility] august and had sat on a plane for 5 hours and a few hours in a car at that time. However he did not notice any shortness of breath until Friday night. Patient's sister does have MTHF, however hematology does not feel there is correlation. 11/29: Patient examined sitting at the side of the bed resting comfortably without any complaints of shortness of breath, chest pain or dizziness. Patient is tolerating heparin drip without any difficulties. Patient was seen by pulmonology who said that he was ready to go home. However due to the amount of clot burden we will continue with 24 hours of IV heparin and transitioned to oral anticoagulant. Patient denies any pain to the lower extremity. Patient denies any fever or chills at this time. Review of system Constitutional: Denies chills, Denies fever, Denies lethargy, Denies malaise, Denies poor appetite, Denies weakness, Denies weight loss Eyes: denies decreased vision, denies diplopia, denies discharge, denies pain Ears: deny: decreased hearing Ears, nose, mouth and throat: Denies dental pain, Denies headache, Denies nasal discharge, Denies nose pain Cardiovascular: Denies chest pain, Denies decreased exercise tolerance, Denies edema, Denies high blood pressure, Denies irregular heart beat, Denies palpitati ons, Denies paroxysmal nocturnal dyspnea, Denies rapid heart beat, Denies shortness of breath Respiratory: Denies congestion, Denies cough, Denies cough with sputum, Denies dyspnea, Denies home oxygen, Denies wheezing Gastrointestinal: Denies abdominal pain, Denies change in bowel habits, Denies coffee ground emesis, Denies early satiety, Denies excessive gas, Denies heartburn, Denies hematemesis, Denies hematochezia, Denies loss of appetite, Denies nausea, Denies vomiting Genitourinary: Denies dysuria, Denies flank pain, Denies kidney stones, Denies menorrhagia, Denies urgency, Denies urinary frequency Musculoskeletal: Denies gait dysfunction, Denies limitation of motion, Denies morning stiffness, Denies muscle cramps Hematologic/Lymphatic: Denies easy bruising, Denies lymphadenopathy Objective - Vital Signs Vital signs: Vital Signs Temp 98.2 F 11/29/18 07:45 Pulse 81 11/29/18 08:00 Resp 18 11/29/18 08:00 BP 121/66 11/29/18 07:45 Pulse Ox 98 11/29/18 07:45 Intake & Output 11/28/18 11/29/18 11/29/18 18:59 06:59 18:59 Intake Total 170 414.672 260 Output Total 240 Balance 170 174.672 260 Intake: IV 170 180 Invasive Line 1 10 Sodium Chloride 0.9% 1, 160 180 000 ml @ 20 mls/hr IV . Q24H [facility] Rx#:[id number] Intake, IV Titration 234.672 Amount Heparin Sod,Pork in 0.45% 234.672 NaCl 25,000 unit In 0.45 % NaCl 1 250ml.bag @ 18 UNITS/KG/HR 15.676 mls/hr IV .[id number] [facility] Rx#: [id number] Oral 260 Output: Urine 240 Other: Voiding Method Urinal Urinal Urinal # Voids 3 - Exam General Appearance: Alert, cooperative, no distress, appears stated age. Neck HEENT: Supple, no lymphadenopathy, no thyroid enlargement, no carotid bruits. Lungs: Clear to auscultation without crackles or wheezes no rhonchi, no deformity. Chest Wall: Chest wall normal expansion with deep inspiration no tenderness and no deformity was found on exam, no costochondral pain or discomfort. Heart: Regular rate and rhythm, S1, S2 normal, no murmur, rub or gallop. Back: Symmetric, no curvature, ROM normal, no CVA tenderness. Abdomen: Soft, non-tender, no rebound or rigidity, no hepatosplenomegaly. Extremities: Extremities normal, atraumatic, no cyanosis or edema. Pulses: 2+ and symmetric. Skin: Skin color, texture, tugor normal, no rashes or lesions. Neurologic: Alert oriented x3 cranial nerves II through XII intact, no motor deficit, no abnormal balance or gait - Labs CBC & Chem 7: 11/29/18 04:53 11/29/18 04:53 Labs: Abnormal Lab Results - Last 24 Hours (Table) 11/29/18 11/29/18 Range/Units 04:53 04:53 Hgb 12.3 L (13.0-17.5) gm/dL Hct 37.6 L (39.0-53.0) % APTT 47.9 H (22.0-30.0) sec Assessment and Plan Plan: 1. acute bilateral pulmonary embolism: No risks factors. 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 Continue IV heparin for 24 more hours. transition to oral anticoagulant tomorrow. Doppler lower extremity positive for DVT in the left popliteal vein. Hematology consult for hypercoagulability, positive history of PE in sister 2. acute tropenemia, likely type II NM stable troponin downtrending from 0.842 to 0.037 3. shortness of breath: Most likely from PE. Improved 4. hyper lipidemia: Was not any medication we'll consider starting patient on statin like Lipitor 40 mg daily. 5. hyperglycemia: Patient is on diet control Accu-Chek with sliding scales coverage will be done and if needed small dose of metformin might be beneficial. 6. chronic lower back pain: Has been on muscle relaxer and Celebrex on an as- needed basis. Discussed the need to stop Celebrex in the future. 7. GI prophylaxis: Patient will be on Pepcid 20 mg twice a day as needed. 8. DVT prophylaxis: Patient will be on heparin drip for now. CODE STATUS: Full code. Discharge plan: Possible discharge tomorrow depending on anticoagulant regime Impression and plan of care have been directed as dictated by the signing physician. May Mccarty nurse practitioner acting as scribe for signing physician.
--- NOTE | 2018-11-29 13:27 | P.PN ---
Subjective Progress Note Date: 11/29/18 Principal diagnosis: Acute bilateral pulmonary embolism This is a very pleasant 58-year-old gentleman who follows with Dr. Young as his primary care physician. He has a history of arthritis, insomnia. He is a lifelong nonsmoker. He presented to the emergency room this morning after a 5 day history of exertional shortness of breath that was getting progressively worse. He was out golfing yesterday and was getting quite short of breath even getting on and off his cough car. This morning he had some dizziness as well. He was seen by his PCP who performed EKG and found to have some T-wave inversions and was referred here to the emergency room for the same. No chest pain or palpitations. EKG revealed nonspecific ST and T wave abnormalities. He was admitted to the selective care unit for unstable angina with exertional shortness of breath. Troponin 0.084. 0.049. ProBNP 1480. D-dimer elevated at 6.89. CT angiogram was performed at 3:45 PM and revealed large burden acute bilateral pulmonary emboli involving the main pulmonary arteries and their secondary and distal branches bilaterally. We are consulted for the same. He is now seen urgently on the selective care unit. He is currently quite comfortable at rest. No worsening shortness of breath, cough or congestion. No hemoptysis. No chest pain, palpitations, lightheadedness or dizziness at the ti me. Maintaining good O2 saturations in the 90s on room air. Currently hemodynamically stable. His most recent travel was 2 months ago to [facility]. He does drive an hour and a half to work each day but is active after that. No recent surgery. No recent trauma. He feels he did have some left lower extremity edema a few days ago. No pain redness or warmth. No history of cancer. He does have a sister who has an unprovoked PE and is currently under treatment. He has been initiated on a heparin drip. Patient was reevaluated today on 11/27/2018, remains on heparin, remains hemodynamically stable, patient is relatively asymptomatic, no shortness of breath at rest, no chest pain, no fever, no chills, no nausea no vomiting no abdominal pain. Patient is doing surprisingly good and better than expected considering his significantly abnormal CT of the chest upon presentation. His heparin is therapeutic. Hence considering the patient is that stable, we'll arrange for the patient to be transferred out of the ICU to a monitor bed on selective if available. All labs were reviewed, CBC is normal platelets are 208, PTT is 50. Reevaluated today on 11/28/2018, patient remains in the ICU as an overflow from selective, asymptomatic, no shortness of breath no cough no wheezing no chest pain. Remains on heparin, PTT is therapeutic. Patient is doing much better clinically than expected considering his significant abnormality on the CT of the chest. CBC is normal platelets are 193 PTT is 47.5 electrolytes and renal profile are normal. Reevaluated today on 11/29/2018, patient is doing well, asymptomatic, no cough no wheezing no shortness of breath, and I have recommended that the patient could be switched to Xarelto, and consider discharge planning possibly today. Again I see no value for repeat echocardiogram since the patient has no clinical symptoms whatsoever. And the echocardiogram will not change the present treatment plan. Objective - Vital Signs Vital signs: Vital Signs Temp 98.2 F 11/29/18 07:45 Pulse 81 11/29/18 08:00 Resp 18 11/29/18 08:00 BP 121/66 11/29/18 07:45 Pulse Ox 98 11/29/18 07:45 Intake & Output 11/28/18 11/29/18 11/29/18 18:59 06:59 18:59 Intake Total 170 414.672 299.437 Output Total 240 750 Balance 170 174.672 -450.563 Intake: IV 170 180 10 Invasive Line 1 10 10 Sodium Chloride 0.9% 1, 160 180 000 ml @ 20 mls/hr IV . Q24H [facility] Rx#:[id number] Intake, IV Titration 234.672 29.437 Amount Heparin Sod,Pork in 0.45% 234.672 29.437 NaCl 25,000 unit In 0.45 % NaCl 1 250ml.bag @ 18 UNITS/KG/HR 15.676 mls/hr IV .[id number] [facility] Rx#: [id number] Oral 260 Output: Urine 240 750 Other: Voiding Method Urinal Urinal Urinal # Voids 3 1 - Exam Physical Exam: Revealed a 58-year-old white male in no distress. Head: Atraumatic, normocephalic. HEENT:[Neck is supple.] [No neck masses.] [No thyromegaly.] [No JVD.] Chest: [Clear throughout, no crackles, no rhonchi, no wheezes.] Cardiac Exam: [Normal S1 and S2, no S3 gallop, no murmur.] Abdomen: [Soft, nontender, no megaly, no rebound, no guarding, normal bowel sounds.] Extremities: [No clubbing, no edema, no cyanosis.] Neurological Exam: [No focal neurologic deficit.] Psychiatric: Normal mood affect and mental status examination. Lymphatics: No lymphadenopathy. Skin: No rashes. - Labs CBC & Chem 7: 11/29/18 04:53 11/29/18 04:53 Labs: Abnormal Lab Results - Last 24 Hours (Table) 11/29/18 11/29/18 Range/Units 04:53 04:53 Hgb 12.3 L (13.0-17.5) gm/dL Hct 37.6 L (39.0-53.0) % APTT 47.9 H (22.0-30.0) sec Assessment and Plan Assessment: #1 acute bilateral pulmonary embolism, unprovoked. #2 Troponin leak. This is secondary to pulmonary embolism. Echocardiogram showed no evidence of ventricular strain, right ventricular systolic pressure was noted to be less than 35. #3 History of insomnia. #4 Arthritis. Recommendation: consider starting Xarelto, and discharge the patient home on Xa relto 15 mg by mouth twice a day for the next 21 days then 20 mg daily/lifetime. Again cleared from our perspective for discharge planning. Time with Patient: Less than 30
--- NOTE | 2018-11-29 13:46 | PN ---
PROGRESS NOTE Mr. Proctor suffered from a pulmonary embolism and had some right ventricular strain. He is doing very well clinically. Oxygenation is good. Blood pressure is good. He has no symptoms. He is still on heparin and we are looking at his insurance to switch him to Xarelto for his pulmonary embolism. Vital signs stable. There is JVD of 1 cm. No carotid bruit. S1-S2 heard normally. Lungs are clear. Abdomen and lower extremity exam unchanged. Plan is to switch him to Xarelto after we get the okay from the insurance. Continue IV heparin for which he has a therapeutic PTT today. Hopefully discharge in the next 48 hours. MMODL / IJN: [id number] /
[2018-11-29] MEDS: CYCLOBENZAPRINE 10 MG TAB PO SCH (20:36)
[2018-11-29] MEDS: LATANOPROST 0.005% OPHTH DROPS 2.5 ML BTL BOTH EYES SCH (20:36)
[2018-11-29] MEDS ORDERED: ATORVASTATIN 20 MG TAB PO SCH (21:00)
[2018-11-29] MEDS: MELOXICAM 7.5 MG TAB PO SCH (21:13)
[2018-11-30] MEDS: HEPARIN SOD,PORK IN 0.45% NACL 25,000 UNIT in 0.45% NACL 1 250ML.BAG IV SCH (05:00)
[2018-11-30 07:38] LABS: Basophils % (A) 1 %; Eosinophils # (A) 0.2 k/uL (0-0.7); Eosinophils % (A) 3 %; HCT 37.3 % (39.0-53.0); HGB 12.6 gm/dL (13.0-17.5); Lymphocytes # (A) 1.7 k/uL (1.0-4.8); Lymphocytes % (A) 34 %; MCH 28.2 pg (25.0-35.0); MCHC 33.6 g/dL (31.0-37.0); MCV 83.7 fL (80.0-100.0); Monocytes # (A) 0.3 k/uL (0-1.0); Monocytes % (A) 6 %; Neutrophils # (A) 2.6 k/uL (1.3-7.7); Neutrophils % (A) 53 %; Platelet Count 202 k/uL (150-450); RBC 4.46 m/uL (4.30-5.90); RDW 14.8 % (11.5-15.5); WBC 4.9 k/uL (3.8-10.6)
[2018-11-30] MEDS: PANTOPRAZOLE 40 MG TABLET PO SCH (07:57)
[2018-11-30] MEDS: ASPIRIN 325 MG TAB PO SCH (07:57)
[2018-11-30] MEDS: DORZOLAMIDE-TIMOLOL 2.23%/0.68 10ML BTL BOTH EYES SCH (07:58)
[2018-11-30 08:02] LABS: African American GFR (CKD) >90 (>60 ml/min/1.73 sqM); Anion Gap 7 mmol/L; Blood Urea Nitrogen 16 mg/dL (9-20); Calcium 9.1 mg/dL (8.4-10.2); Carbon Dioxide 28 mmol/L (22-30); Chloride 105 mmol/L (98-107); Glucose 86 mg/dL (74-99); Potassium 4.4 mmol/L (3.5-5.1); Sodium 140 mmol/L (137-145)
--- NOTE | 2018-11-30 11:05 | P.PN ---
Subjective This is a pleasant 58-year-old male past medical history significant for arthritis and insomnia. Initially presented to the hospital with shortness of breath and was found to have bilateral PE's and a DVT. Initial echocardiogram revealed a dilated right ventricle with normal RV pressures. He is seen and examined sitting up in bed in no acute distress. He denies chest pain, shortness of breath, dizziness or palpitations. He is currently maintained on heparin infusion with plans to transition to Xarelto today if covered. Blood pressure 112/72 herat rate 69 afebrile and maintaining oxygen saturation on room air. Laboratory data reviewed, WBC 4.9, hgb 12.6, plt 202, sodium 140, potassium 4.4, creatinine 0.95. Repeat echo reveals improvement in RV size. GENERAL: Well-appearing, well-nourished and in no acute distress. NECK: Supple without JVD or thyromegaly. LUNGS: Breath sounds clear to auscultation bilaterally. Respiration equal and unlabored. No wheezes, rales or rhonchi. HEART: Regular rate and rhythm without murmurs, rubs or gallops. S1 and S2 heard. EXTREMITIES: Normal range of motion, no edema. No clubbing or cyanosis. Peripheral pulses intact. ASSESSMENT Pulmonary embolism, bilateral with dilated right ventricle Tropponin leak, secondary to PE. PLAN Stable for discharge from a cardiac perspective. Transition to PO xarelto when coverage is determined, otherwise coumadin will be required. Follow up with Dr. Jones in 2 weeks. Nurse Practitioner note has been reviewed, I agree with a documented findings and plan of care. Patient was seen and examined. Objective - Vital Signs Vital signs: Vital Signs Temp 97.6 F 11/30/18 04:47 Pulse 69 11/30/18 04:47 Resp 16 11/30/18 04:47 BP 112/72 11/30/18 04:47 Pulse Ox 97 11/30/18 04:47 Intake & Output 11/29/18 11/30/18 11/30/18 18:59 06:59 18:59 Intake Total 499.437 879.471 Output Total 1350 Balance -850.563 879.471 Intake: IV 10 Invasive Line 1 10 Intake, IV Titration 29.437 289.471 Amount Heparin Sod,Pork in 0.45% 29.437 219.471 NaCl 25,000 unit In 0.45 % NaCl 1 250ml.bag @ 18 UNITS/KG/HR 15.676 mls/hr IV .[id number] [facility] Rx#: [id number] Sodium Chloride 0.9% 1, 70 000 ml @ 20 mls/hr IV . Q24H [facility] Rx#:[id number] Oral 460 590 Output: Urine 1350 Other: Voiding Method Urinal Toilet # Voids 1 2 - Labs CBC & Chem 7: 11/30/18 06:47 11/30/18 06:47 Labs: Abnormal Lab Results - Last 24 Hours (Table) 11/30/18 11/30/18 Range/Units 06:47 06:47 Hgb 12.6 L (13.0-17.5) gm/dL Hct 37.3 L (39.0-53.0) % APTT 49.0 H (22.0-30.0) sec
--- NOTE | 2018-11-30 11:32 | ECHOF ---
Referral Reason:SOB MEASUREMENTS -------- HEIGHT: 170.2 cm WEIGHT: 118.4 kg BP: RVIDd: 3.3 cm (< 3.3) IVSd: 0.9 cm (0.6 - 1.1) LVIDd: 4.4 cm (3.9 - 5.3) LVPWd: 1.2 cm (0.6 - 1.1) IVSs: 1.3 cm LVIDs: 2.7 cm LVPWs: 1.9 cm LAESV Index (A-L): 15.33 ml/m Ao Diam: 2.8 cm (2.0 - 3.7) AV Cusp: 2.0 cm (1.5 - 2.6) LA Diam: 3.8 cm (2.7 - 3.8) EPSS: 0.3 cm MV E Delonte: 0.71 m/s MV DecT: 173 ms MV A Delonte: 0.85 m/s MV E/A Ratio: 0.83 RAP: 5.00 mmHg RVSP: 11.89 mmHg MV EF SLOPE: 85.98 mm/s (70 - 150) MV EXCURSION: 1.56 cm (> 18.000) FINDINGS -------- Sinus rhythm. This was a technically good study. The left ventricular size is normal. There is mild concentric left ventricular hypertrophy. Overa ll left ventricular systolic function is normal with, an EF between 55 - 60 %. The right ventricle is mildly enlarged. Left atrium is normal size by volume. The right atrial size is normal. The aortic valve is trileaflet, and appears structurally normal. No aortic stenosis or regurgitation. The mitral valve is normal. There is trace mitral regurgitation. Mild tricuspid regurgitation present. Right ventricular systolic pressure is normal at < 35 mmHg. Trace/mild (physiologic) pulmonic regurgitation. The aortic root size is normal. Normal inferior vena cava with normal inspiratory collapse consistent with estimated right atrial pre ssure of 10 mmHg. There is no pericardial effusion. CONCLUSIONS -------- 1. Sinus rhythm. 2. This was a technically good study. 3. The left ventricular size is normal. 4. There is mild concentric left ventricular hypertrophy. 5. Overall left ventricular systolic function is normal with, an EF between 55 - 60 %. 6. The right ventricle is mildly enlarged. 7. Left atrium is normal size by volume. 8. The aortic valve is trileaflet, and appears structurally normal. No aortic stenosis or regurgitati on. 9. The mitral valve is normal. 10. There is trace mitral regurgitation. 11. Mild tricuspid regurgitation present. 12. Right ventricular systolic pressure is normal at < 35 mmHg. 13. Trace/mild (physiologic) pulmonic regurgitation. 14. The aortic root size is normal. 15. Normal inferior vena cava with normal inspiratory collapse consistent with estimated right atrial pressure of 10 mmHg. 16. There is no pericardial effusion. 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
--- NOTE | 2018-11-30 12:14 | P.DS ---
Providers Date of admission: 11/26/18 16:31 Attending physician: Justin Solorio Consults: 11/26/18 10:38 Consult Physician Urgent Consulting Provider: Sarahy Pastor Consult Reason/Comments: Exertional dyspnea, angina, EKG changes Do you want consulting provider notified?: Yes 11/26/18 16:01 Consult Physician Urgent Consulting Provider: Oren Christopher Consult Reason/Comments: large bilateral PEs Do you want consulting provider notified?: Already Contacted 11/27/18 11:59 Consult Physician Routine Consulting Provider: Jose Singleton Consult Reason/Comments: unprovoked PE Do you want consulting provider notified?: Yes Primary care physician: Claus Young Hospital Course: 58-year-old male one of Dr. Young's patient with past medical history of lower back pain osteoarthritis and fibromyalgia who has been doing well until the last a few days when he developed to have significant worsening dyspnea and shortness of breath with exertion has been become much worse patient had more symptoms yesterday while he was golfing and having to get in and out of the golf cart was making him more symptomatic. Was seen by Dr. Young EKG showed T waves inversion was concern about acute [place] patient was sent to the emergency department CK with troponin was mildly elevated the waves inversion found in EKG patient will be heparinize consult cardiology patient be admitted and might need to go for heart catheter. Shortly after accepting admission surprisingly his d-dimer came back very elevated and PT was sent for CTA of the lung finding consistent with very large bilateral pulmonary embolism. Patient was started on heparin drip and he is hospitalized in the ICU will be seen pulmonary Doppler of the lower extremity be done to exclude the possibility of DVT as well otherwise need a reason for PE wh ether workup for malignancy are coagulopathy is indicated. 11/27 patient examined bedside. Resting comfortably without any shortness of breath or chest pain or dizziness. He noticed one week ago swelling in his left lower extremity and shortness of breath got worse 2 days ago seeking admission. Patient does have bilateral pulmonary embolism with the positive nonoccluding popliteal vein DVT in the left. 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 He is otherwise active. He has a sister with known history of pulmonary embolism with the factor positive for hypercoagulability. Heme oncology consulted for further evaluation. Continue heparin drip 11/28: Patient is examined sitting up in a chair resting comfortably without any shortness of breath or complaints of chest pain or dizziness. Patient is tolerating heparin drip without any difficulties. Patient denies any pain to the lower extremity. Discussed with patient that the need for hyper-coagulant workup will be required in outpatient setting. Patient did state that he had traveled to [facility] and August and had sat on a plane for 5 hours and a few hours in a car at that time. However he did not notice any shortness of breath until Friday night. Patient's sister does have MTHF, however hematology does not feel there is correlation. 11/29: Patient examined sitting at the side of the bed resting comfortably without any complaints of shortness of breath, chest pain or dizziness. Patient is tolerating heparin drip without any difficulties. Patient was seen by pulmonology who said that he was ready to go home. However due to the amount of clot burden we will continue with 24 hours of IV heparin and transitioned to oral anticoagulant. Patient denies any pain to the lower extremity. Patient denies any fever or chills at this time. Discharge diagnoses: 1. Bilateral pulmonary emboli. 2. Acute respiratory insufficiency due to bilateral pulmonary emboli. 3. Osteoarthritis. 4. Elevated troponin without evidence of acute coronary syndrome. 5. Hyperlipidemia. 6. Hyperglycemia. 7. Overweight. 8. Possible hypercoagulable state. Patient Condition at Discharge: Stable Plan - Discharge Summary Discharge Rx Participant: Yes New Discharge Prescriptions: New Atorvastatin [Lipitor] 20 mg PO HS #30 tab Pantoprazole [Protonix] 40 mg PO AC-BRKFST #30 tablet. Rivaroxaban [Xarelto] 15 mg PO BID-W/MEALS #42 tab Continue Latanoprost [Xalatan 0.005%] 1 drop BOTH EYES HS Dorzolamide-Timol 2.23%/0.68% [Cosopt] 1 drop BOTH EYES BID Cyclobenzaprine [Flexeril] 10 mg PO DAILY Discontinued Celecoxib [CeleBREX] 200 mg PO HS Discharge Medication List Cyclobenzaprine [Flexeril] 10 mg PO DAILY 11/26/18 [History] Dorzolamide-Timol 2.23%/0.68% [Cosopt] 1 drop BOTH EYES BID 11/26/18 [History] Latanoprost [Xalatan 0.005%] 1 drop BOTH EYES HS 11/26/18 [History] Atorvastatin [Lipitor] 20 mg PO HS #30 tab 11/30/18 [Rx] Pantoprazole [Protonix] 40 mg PO AC-BRKFST #30 tablet.dr 11/30/18 [Rx] Rivaroxaban [Xarelto] 15 mg PO BID-W/MEALS #42 tab 11/30/18 [Rx] Follow up Appointment(s)/Referral(s): Jose Singleton MD [STAFF PHYSICIAN] - 4 Weeks Claus Young MD [Primary Care Provider] - 1 Week Mary Ann Jones MD [STAFF PHYSICIAN] - 2 Weeks Patient Instructions/Handouts: Atorvastatin (By mouth), Pantoprazole (By mouth), Rivaroxaban (By mouth) Discharge Disposition: HOME SELF-CARE
[2018-11-30 12:29] VITALS: BP 116/77; PULSE 80; RESP 20; TEMP 98.1
--- NOTE | 2018-11-30 16:25 | P.PN ---
Subjective Progress Note Date: 11/30/18 Principal diagnosis: Unprovoked PE, left lower extremity DVT In f/u pt feels well, no chest pain, SOB, palpitations, swelling or pain in the lower extremities Objective - Vital Signs Vital signs: Vital Signs Temp 98.1 F 11/30/18 11:54 Pulse 80 11/30/18 11:54 Resp 20 11/30/18 11:54 BP 116/77 11/30/18 11:54 Pulse Ox 97 11/30/18 11:54 Intake & Output 11/29/18 11/30/18 11/30/18 18:59 06:59 18:59 Intake Total 499.437 879.471 Output Total 1350 Balance -850.563 879.471 Intake: IV 10 Invasive Line 1 10 Intake, IV Titration 29.437 289.471 Amount Heparin Sod,Pork in 0.45% 29.437 219.471 NaCl 25,000 unit In 0.45 % NaCl 1 250ml.bag @ 18 UNITS/KG/HR 15.676 mls/hr IV .[id number] BUD Rx#: [id number] Sodium Chloride 0.9% 1, 70 000 ml @ 20 mls/hr IV . Q24H BUD Rx#:[id number] Oral 460 590 Output: Urine 1350 Other: Voiding Method Urinal Toilet # Voids 1 2 1 - Constitutional General appearance: Present: average body habitus, cooperative, no acute distress - EENT Eyes: Present: anicteric sclerae, EOMI ENT: Present: hearing grossly normal - Respiratory Respiratory: bilateral: CTA - Cardiovascular Heart sounds: normal: S1, S2 - Peripheral edema leg Peripheral Edema: bilateral: None - Gastrointestinal General gastrointestinal: Present: normal bowel sounds, soft - Neurologic Neurologic: Present: CNII-XII intact - Musculoskeletal Musculoskeletal: Present: strength equal bilaterally - Psychiatric Psychiatric: Present: A&O x's 3, appropriate affect, intact judgment & insight - Labs CBC & Chem 7: 11/30/18 06:47 11/30/18 06:47 Labs: Abnormal Lab Results - Last 24 Hours (Table) 11/30/18 11/30/18 Range/Units 06:47 06:47 Hgb 12.6 L (13.0-17.5) gm/dL Hct 37.3 L (39.0-53.0) % APTT 49.0 H (22.0-30.0) sec Assessment and Plan (1) Deep vein thrombosis (DVT) of left lower extremity Status: Acute Priority: High Code(s): I82.402 - ACUTE EMBOLISM AND THOMBOS UNSP DEEP VEINS OF L LOW EXTREM SNOMED Code(s): 581018126 (2) Bilateral pulmonary embolism Status: Acute Priority: High Code(s): I26.99 - OTHER PULMONARY EMBOLISM WI THOUT ACUTE COR PULMONALE SNOMED Code(s): 08378480 Plan: Unprovoked left lower extremity DVT and pulmonary embolism. Plan is at this time for lifelong anticoagulation. Prescription for hypercoagulable workup was placed on the patient's chart. Patient was instructed to have those labs drawn as soon as able then follow-up with Dr. Singleton in 4-6 weeks later for results. Currently pending the oral anticoagulant of patient's insurance choice. Discharge after that. All of his questions were answered. We did review bleeding precautions.
[2018-11-30] MEDS ORDERED: RIVAROXABAN 15 MG TAB PO SCH (17:30)
== END 2018-11-30 15:11 | disposition home or self-care (01) | DRG 176 ==
LOC: EC 09:13 → UNDOADMOB 10:38 → 1SOBS 10:38 → 3SCARD 10:38 → OBSVTOIN 16:31 → 2SICU 16:50 → 3SCARD 11-29 05:38 → 3NMEDONC 11-29 13:41
PROVIDERS: ADMIT Internal Medicine Geriatric Medicine; ATTEND Internal Medicine Geriatric Medicine
DX: I26.99 Other pulmonary embolism without acute cor pulmonale (principal); I82.432 Acute embolism and thrombosis of left popliteal vein; D68.59 Other primary thrombophilia; Z68.41 Body mass index [BMI] 40.0-44.9, adult; E66.3 Overweight; E78.5 Hyperlipidemia, unspecified; G89.29 Other chronic pain; M54.5 Low back pain; I10 Essential (primary) hypertension; M19.90 Unspecified osteoarthritis, unspecified site; M79.7 Fibromyalgia; Z82.49 Family history of ischemic heart disease and other diseases of the circulatory system; R74.8 Abnormal levels of other serum enzymes; Z82.3 Family history of stroke; Z88.5 Allergy status to narcotic agent; Z88.8 Allergy status to other drugs, medicaments and biological substances; Z83.2 Family history of diseases of the blood and blood-forming organs and certain disorders involving the immune mechanism; G47.00 Insomnia, unspecified; R73.9 Hyperglycemia, unspecified; R06.89 Other abnormalities of breathing; Z79.899 Other long term (current) drug therapy
CPT/HCPCS: 36415; 71046; 71275; 80048; 80053; 80061; 82550; 83735; 83880; 84484; 85025; 85379; 85610; 85730; 93005; 93306; 93970; 99285

== ENCOUNTER → 2019-02-22 | Outpatient (CLI) | payer BC ==
--- NOTE | 2019-02-23 05:02 | CT ---
EXAMINATION TYPE: CT chest w con DATE OF EXAM: 02/22/2019 COMPARISON: 11/26/2018 HISTORY: 58-year-old male Follow-up to PE from November 2018 TECHNIQUE: Contiguous axial scanning of the chest after the administration of 100 mL of Isovue 370. Coronal/sagittal MIP reconstructions performed. CT DLP: 407.80mGycm. Automatic exposure control utilized for a dose reduction. FINDINGS: The heart is normal size without pericardial effusion. Prominent epicardial fat pad is present. Aorta normal caliber with mild atherosclerotic arch calcifications and bovine configuration to the ao rtic arch. Satisfactory opacification of the pulmonary arterial system with interval clearance of the extensive bilateral pulmonary emboli seen on the prior exam. Minimal faint residual filling defect remains with in a segmental basilar right lower lobe branch, axial image 80 through 83. No thoracic lymphadenopathy by CT size criteria. Evaluation of the lungs shows strandy atelectasis in the lower lungs with mild diffuse bronchial wall thickening and scattered mild emphysematous change. No consolidation or pleural effusion. Visualized upper abdomen shows no gross abnormality. Bones: Moderate to severe degenerative disc disease cervicothoracic junction and lower thoracic spine . IMPRESSION: 1. Interval clearance of the extensive bilateral pulmonary emboli seen on 11/26/2018. Minimal faint re sidual clot remains within a basilar segmental right lower lobe branch, axial image 80 through 83. 2. COPD with mild emphysema.
== END | disposition home or self-care (01) ==
LOC: RADCTMAIN 17:20
PROVIDERS: ATTEND Internal Medicine Critical Care Medicine
DX: I26.99 Other pulmonary embolism without acute cor pulmonale (principal); J43.9 Emphysema, unspecified; Z88.5 Allergy status to narcotic agent
CPT/HCPCS: 71260; Q9967

== ENCOUNTER 2021-06-12 14:34 | Emergency (ER) | payer BC ==
[2021-06-12 15:45] LABS: Basophils % (A) 0 %; Eosinophils # (A) 0.2 k/uL (0-0.7); Eosinophils % (A) 2 %; HCT 39.6 % (39.0-53.0); HGB 13.3 gm/dL (13.0-17.5); Lymphocytes # (A) 1.6 k/uL (1.0-4.8); Lymphocytes % (A) 20 %; MCHC 33.5 g/dL (31.0-37.0); MCV 83.8 fL (80.0-100.0); Mean Platelet Volume 6.8; Monocytes # (A) 0.4 k/uL (0-1.0); Monocytes % (A) 5 %; Neutrophils # (A) 5.8 k/uL (1.3-7.7); Neutrophils % (A) 72 %; Platelet Count 213 k/uL (150-450); RBC 4.73 m/uL (4.30-5.90); RDW 13.4 % (11.5-15.5)
[2021-06-12 16:05] LABS: INR 1.2 (<1.2)
[2021-06-12 16:07] LABS: Partial Thromboplastin Time 29.3 sec (22.0-30.0); Prothrombin Time 12.8 sec (9.0-12.0)
[2021-06-12 16:19] LABS: ALT 31 U/L (4-49); AST 31 U/L (17-59); African American GFR (CKD) >90 (>60 ml/min/1.73 sqM); Alkaline Phosphatase 92 U/L (38-126); Anion Gap 12 mmol/L; Blood Urea Nitrogen 15 mg/dL (9-20); Calcium 9.1 mg/dL (8.4-10.2); Carbon Dioxide 24 mmol/L (22-30); Chloride 101 mmol/L (98-107); Glucose 93 mg/dL (74-99); Non-African American GFR(CKD) 80 (>60 ml/min/1.73 sqM); Potassium 4.5 mmol/L (3.5-5.1); Sodium 137 mmol/L (137-145); Total Bilirubin 0.7 mg/dL (0.2-1.3); Total Protein 7.2 g/dL (6.3-8.2)
--- NOTE | 2021-06-12 17:17 | CT ---
EXAMINATION TYPE: CT angio chest DATE OF EXAM: 06/12/2021 COMPARISON: 11/26/2018 HISTORY: Hypotensive and tachycardia. CT DLP: 433.8 mGycm Automated exposure control for dose reduction was used. CONTRAST: Performed with IV Contrast, patient injected with 72ml mL of Isovue 370. There are Three-D postprocessed images. The lungs are clear of infiltrate. There is no pleural effusion or pneumothorax. Heart size is normal . There is no pericardial effusion. There is normal contrast opacification of the pulmonary arteries. There are no filling defects. There are no hilar masses. There is no mediastinal adenopathy. Thoracic aorta is intact. There is chip e spurring in the lower thoracic spine. IMPRESSION: Negative exam. No evidence of pulmonary embolism. There is clearing of the multiple large pulmonary e mboli compared to old exam.
--- NOTE | 2021-06-12 17:38 | ED ---
General Adult HPI - General Chief complaint: Recheck/Abnormal Lab/Rx Stated complaint: elevated heart rate-sent by Time Seen by Provider: 06/12/21 14:59 Source: patient, RN notes reviewed Mode of arrival: ambulatory Limitations: no limitations - History of Present Illness Initial comments: 61-year-old male presents to the emergency department for evaluation of elevated heart rate. Patient was sent by PCP for workup after the patient had elevated heart rate and low blood pressure readings in the office. Patient does have a history of pulmonary embolism and is on oral anticoagulant. There is concern for possible breakthrough PE therefore patient is to be scanned. At this time, patient denies fever, chills, headache, dizziness, chest pain, shortness of breath, abdominal pain, nausea, vomiting, diarrhea, dysuria, or hematuria. - Related Data Home Medications Medication Instructions Recorded Confirmed Cyclobenzaprine [Flexeril] 10 mg PO HS 11/26/18 06/12/21 Latanoprost [Xalatan 0.005%] 1 drop BOTH EYES HS 11/26/18 06/12/21 Pantoprazole Sodium [Protonix] 20 mg PO BID 06/12/21 06/12/21 Rivaroxaban [Xarelto] 20 mg PO HS 06/12/21 06/12/21 Allergies Allergy/AdvReac Type Severity Reaction Status Date / Time meperidine [From Demerol] Allergy Unknown Verified 06/12/21 16:37 Review of Systems ROS Statement: Those systems with pertinent positive or pertinent negative responses have been documented in the HPI. ROS Other: All systems not noted in ROS Statement are negative. Past Medical History Past Medical History: Eye Disorder, Fibromyalgia, Hyperlipidemia, Osteoarthritis (OA), Skin Disorder Additional Past Medical History / Comment(s): ARTHRITIS. History of Any Multi-Drug Resistant Organisms: None Reported Past Surgical History: Appendectomy, Orthopedic Surgery Additional Past Surgical History / Comment(s): SHOULDER SURGERY, KNEE SURGERY Past Anesthesia/Blood Transfusion Reactions: No Reported Reaction Past Psychological History: No Psychological Hx Reported Smoking Status: Former smoker Past Alcohol Use History: Occasional Past Drug Use History: None Reported - Past Family History Father Family Medical History: CVA/TIA, Vascular Disorder Additional Family Medical History / Comment(s): Father at the age of 67yrs possibly from CVA, valvular disease. Mother Family Medical History: Coronary Artery Disease (CAD) Additional Family Medical History / Comment(s): Mother at the age of 84 yrs from "old age." General Exam Limitations: no limitations (Developed, well-nourished male in no acute distress. Initial temperature 98.1, pulse 102, respirations 18, blood pressure 121/74, pulse ox 100% on room air.) General appearance: alert, in no apparent distress Eye exam: Present: normal appearance, PERRL, EOMI. Absent: scleral icterus, conjunctival injection, periorbital swelling Respiratory exam: Present: normal lung sounds bilaterally. Absent: respiratory distress, wheezes, rales, rhonchi, stridor, chest wall tenderness Cardiovascular Exam: Present: normal rhythm, tachycardia, normal heart sounds GI/Abdominal exam: Present: soft, normal bowel sounds. Absent: distended, tenderness, guarding, rebound, rigid Extremities exam: Present: normal capillary refill. Absent: pedal edema Back exam: Present: normal inspection Neurological exam: Present: alert, oriented X3, CN II-XII intact Psychiatric exam: Present: normal affect, normal mood Skin exam: Present: warm, dry, intact, normal color. Absent: rash Course Vital Signs 06/12/21 06/12/21 06/12/21 14:41 15:18 17:42 Temperature 98.1 F 98.0 F Pulse Rate 102 H 82 Pulse Rate [ 70 Radial] Respiratory 18 16 Rate Blood Pressure 121/74 104/82 O2 Sat by Pulse 100 97 Oximetry - Reevaluation(s) Reevaluation #1: 06/12/21 17:[address] Young to update him on results from patient's workup. Patient's heart rate is currently in the 70s; no episodes of hypotension. CT is negative for PE. He is comfortable with the plan to discharge patient home and will follow-up with him outpatient. Medical Decision Making - Medical Decision Making 61-year-old male with a past medical history of pulmonary embolism presents to the emergency department for evaluation of tachycardia. Upon exam, patient is well-appearing and in no acute distress. Patient was sent in by his PCP for a CT of the chest to rule out pulmonary embolism as patient was hypotensive and tachycardic in the office prior to arrival. Upon presentation, patient was mi ldly tachycardic at 102, however this resolved and patient's resting respiratory was 70-80. She did not experience any episodes of shortness of breath, difficulty breathing, hypotension, or chest discomfort while present in the emergency department. EKG was obtained upon arrivalshows sinus tachycardia with a ventricular rate of 102. Laboratory studies were reviewed and are unremarkable; d-dimer is 0.24 and troponin is negative. CTA chest is negative for PE. Did speak with Dr. Dr. Young regarding findings of this workup. He is comfortable with the plan to discharge this patient home and to see him on an outpatient basis in the office. Strict return parameters were discussed with patient. He verbalizes understanding and agrees with this plan. This patient's care was discussed with my attending Dr. Marcos. - Lab Data Result diagrams: 06/12/21 15:36 06/12/21 15:36 Lab Results 06/12/21 06/12/21 06/12/21 Range/Units 15:36 15:36 15:36 WBC 8.0 (3.8-10.6) k/uL RBC 4.73 (4.30-5.90) m/uL Hgb 13.3 (13.0-17.5) gm/dL Hct 39.6 (39.0-53.0) % MCV 83.8 (80.0-100.0) fL MCH 28.0 (25.0-35.0) pg MCHC 33.5 (31.0-37.0) g/dL RDW 13.4 (11.5-15.5) % Plt Count 213 (150-450) k/uL MPV 6.8 Neutrophils % 72 % Lymphocytes % 20 % Monocytes % 5 % Eosinophils % 2 % Basophils % 0 % Neutrophils # 5.8 (1.3-7.7) k/uL Lymphocytes # 1.6 (1.0-4.8) k/uL Monocytes # 0.4 (0-1.0) k/uL Eosinophils # 0.2 (0-0.7) k/uL Basophils # 0.0 (0-0.2) k/uL PT 12.8 H (9.0-12.0) sec INR 1.2 H (<1.2) APTT 29.3 (22.0-30.0) sec D-Dimer 0.24 (<0.60) mg/L FEU Sodium 137 (137-145) mmol/L Potassium 4.5 (3.5-5.1) mmol/L Chloride 101 (98-107) mmol/L Carbon Dioxide 24 (22-30) mmol/L Anion Gap 12 mmol/L BUN 15 (9-20) mg/dL Creatinine 1.00 (0.66-1.25) mg/dL Est GFR (CKD-EPI)AfAm >90 (>60 ml/min/1.73 sqM) Est GFR (CKD-EPI)NonAf 80 (>60 ml/min/1.73 sqM) Glucose 93 (74-99) mg/dL Calcium 9.1 (8.4-10.2) mg/dL Total Bilirubin 0.7 (0.2-1.3) mg/dL AST 31 (17-59) U/L ALT 31 (4-49) U/L Alkaline Phosphatase 92 (38-126) U/L Troponin I (0.000-0.034) ng/mL Total Protein 7.2 (6.3-8.2) g/dL Albumin 4.0 (3.5-5.0) g/dL 06/12/21 Range/Units 15:36 WBC (3.8-10.6) k/uL RBC (4.30-5.90) m/uL Hgb (13.0-17.5) gm/dL Hct (39.0-53.0) % MCV (80.0-100.0) fL MCH (25.0-35.0) pg MCHC (31.0-37.0) g/dL RDW (11.5-15.5) % Plt Count (150-450) k/uL MPV Neutrophils % % Lymphocytes % % Monocytes % % Eosinophils % % Basophils % % Neutrophils # (1.3-7.7) k/uL Lymphocytes # (1.0-4.8) k/uL Monocytes # (0-1.0) k/uL Eosinophils # (0-0.7) k/uL Basophils # (0-0.2) k/uL PT (9.0-12.0) sec INR (<1.2) APTT (22.0-30.0) sec D-Dimer (<0.60) mg/L FEU Sodium (137-145) mmol/L Potassium (3.5-5.1) mmol/L Chloride (98-107) mmol/L Carbon Dioxide (22-30) mmol/L Anion Gap mmol/L BUN (9-20) mg/dL Creatinine (0.66-1.25) mg/dL Est GFR (CKD-EPI)AfAm (>60 ml/min/1.73 sqM) Est GFR (CKD-EPI)NonAf (>60 ml/min/1.73 sqM) Glucose (74-99) mg/dL Calcium (8.4-10.2) mg/dL Total Bilirubin (0.2-1.3) mg/dL AST (17-59) U/L ALT (4-49) U/L Alkaline Phosphatase (38-126) U/L Troponin I <0.012 (0.000-0.034) ng/mL Total Protein (6.3-8.2) g/dL Albumin (3.5-5.0) g/dL - EKG Data EKG shows normal: sinus rhythm Rate: tachycardia EKG Comments: EKG was obtained at 1501 and shows sinus tachycardia. Ventricular rate 102, WA interval 162, QRS duration 80, QT/QTC 338/440. Interpretation is borderline ECG. - Radiology Data Radiology results: report reviewed, image reviewed CT angio of the chest was obtained. Report was reviewed in its entirety. Impression per Dr. Zelaya is negative exam. No evidence of pulmonary embolism. There is clearing of the multiple large pulmonary emboli compared to old exam. Disposition Clinical Impression: Tachycardia Disposition: HOME SELF-CARE Condition: Stable Instructions (If sedation given, give patient instructions): Tachycardia (ED) Additional Instructions: Upon arrival, your heart rate was slightly elevated at 102. Normal heart rate is 60-100. Your CT scan does not show any evidence for pulmonary embolism. I spoke with Dr. Young regarding results of your work up here today and he would like to see you in the office for a recheck. Please call tomorrow morning to schedule. Return to the emergency department with any new, worsening, or concerning symptoms. Is patient prescribed a controlled substance at d/c from ED?: No Referrals: Claus Young MD [Primary Care Provider] - 1-2 days Time of Disposition: 17:38
[2021-06-12 17:42] VITALS: BP 104/82; PULSE 82; RESP 16; TEMP 98
== END 2021-06-12 18:10 | disposition home or self-care (01) ==
LOC: EC 14:34
DX: R00.0 Tachycardia, unspecified (principal); M79.7 Fibromyalgia; E78.5 Hyperlipidemia, unspecified; M19.90 Unspecified osteoarthritis, unspecified site; Z90.49 Acquired absence of other specified parts of digestive tract; Z87.891 Personal history of nicotine dependence
CPT/HCPCS: 36415; 71275; 80053; 84484; 85025; 85379; 85610; 85730; 93005; 99285

== ENCOUNTER → 2021-06-21 | Outpatient (CLI) | payer BC ==
--- NOTE | 2021-06-22 09:30 | ECHOF ---
Referral Reason:I95.9 hypotention MEASUREMENTS -------- HEIGHT: 170.2 cm WEIGHT: 88.5 kg BP: 116/73 RVIDd: 3.1 cm (< 3.3) IVSd: 0.8 cm (0.6 - 1.1) LVIDd: 4.4 cm (3.9 - 5.3) LVPWd: 1.1 cm (0.6 - 1.1) IVSs: 1.4 cm LVIDs: 3.2 cm LVPWs: 1.5 cm LA Diam: 3.4 cm (2.7 - 3.8) LAESV Index (A-L): 16.90 ml/m Ao Diam: 3.2 cm (2.0 - 3.7) AV Cusp: 2.4 cm (1.5 - 2.6) MV EXCURSION: 14.924 mm (> 18.000) MV EF SLOPE: 137 mm/s (70 - 150) EPSS: 0.2 cm MV E Delonte: 0.67 m/s MV DecT: 335 ms MV A Delonte: 1.07 m/s MV E/A Ratio: 0.63 FINDINGS -------- Sinus rhythm. This was a technically adequate study. The left ventricular size is normal. Left ventricular wall thickness is normal. Overall left vent ricular systolic function is normal with, an EF between 60 - 65 %. The right ventricle is normal in size. Normal LA size by volume 22+/-6 ml/m2. The right atrium is normal in size. Interatrial and interventricular septum intact. The aortic valve is trileaflet, and appears structurally normal. No aortic stenosis or regurgitation. The mitral valve is normal. The tricuspid valve appears structurally normal. Unable to estimate RVSP due to inadequate TR jet s pectral doppler profile. The pulmonic valve is normal. The aortic root size is normal. Normal inferior vena cava with normal inspiratory collapse consistent with estimated right atrial pre ssure of 5 mmHg. There is no pericardial effusion. CONCLUSIONS -------- 1. The left ventricular size is normal. 2. Left ventricular wall thickness is normal. 3. Overall left ventricular systolic function is normal with, an EF between 60 - 65 %. 4. The aortic valve is trileaflet, and appears structurally normal. No aortic stenosis or regurgitati on. 5. There is no pericardial effusion. PSYCHOLOGY PHYSICIAN: Mari Freedman RDCS
== END | disposition home or self-care (01) ==
LOC: RADECHMAIN 13:57
PROVIDERS: ATTEND Internal Medicine
DX: I95.9 Hypotension, unspecified (principal); R00.0 Tachycardia, unspecified
CPT/HCPCS: 93306

== ENCOUNTER 2022-10-07 11:05 | Day surgery (SDC) | payer BC ==
[2022-09-30 15:24] VITALS: BMI 30.5
[~2022-10-07 11:05] MED LIST: LACTATED RINGERS 1,000 ML IV SCH
[2022-10-07 11:42] VITALS: TEMP 4
[2022-10-07] MEDS ORDERED: PROPOFOL 10 MG/ML 20 ML VIAL IV ONE (12:02)
[2022-10-07] MEDS ORDERED: LIDOCAINE 2% INJ 20 MG/ML (2 ML VIAL) ONE (12:02)
--- NOTE | 2022-10-07 12:09 | P.GSHP ---
History of Present Illness H&P Date: 10/07/22 Chief Complaint: Screening colonoscopy This 62-year-old male presents today for screening colonoscopy. Patient denies a significant GI complaints. Past Medical History Past Medical History: Eye Disorder, Fibromyalgia, Hyperlipidemia, Osteoarthritis (OA), Pulmonary Embolus (PE), Skin Disorder Additional Past Medical History / Comment(s): Hx PE 2018. Glaucoma. Mild Ezcema. Anemia. History of Any Multi-Drug Resistant Organisms: None Reported Past Surgical History: Appendectomy, Orthopedic Surgery Additional Past Surgical History / Comment(s): Bilateral carpal tunnel surgery, right shoulder surgery, right knee surgery. Past Anesthesia/Blood Transfusion Reactions: No Reported Reaction Past Psychological History: No Psychological Hx Reported Smoking Status: Former smoker Past Alcohol Use History: Occasional Additional Past Alcohol Use History / Comment(s): Started smoking in 1978 and quit in 1999. Past Drug Use History: None Reported - Past Family History Father Family Medical History: CVA/TIA, Vascular Disorder Additional Family Medical History / Comment(s): Father at the age of 67yrs possibly from CVA, valvular disease. Mother Family Medical History: Coronary Artery Disease (CAD) Additional Family Medical History / Comment(s): Mother at the age of 84 yrs from "old age." Sister(s) Family Medical History: Cancer, Deep Vein Thrombosis (DVT) Medications and Allergies Home Medications Medication Instructions Recorded Confirmed Type Cyclobenzaprine [Flexeril] 10 mg PO HS 11/26/18 10/07/22 History Latanoprost [Xalatan 0.005%] 1 drop BOTH EYES HS 11/26/18 10/07/22 History Pantoprazole Sodium [Protonix] 20 mg PO DAILY 06/12/21 10/07/22 History Rivaroxaban [Xarelto] 20 mg PO QA 06/12/21 10/07/22 History Celecoxib [CeleBREX] 200 mg PO DAILY 09/30/22 09/30/22 History Ezetimibe [Zetia] 10 mg PO DAILY 09/30/22 10/07/22 History Rosuvastatin Calcium 5 mg PO DAILY 09/30/22 10/07/22 History acetaZOLAMIDE [Diamox Sequels] 500 mg PO DAILY 09/30/22 10/07/22 History Allergies Allergy/AdvReac Type Severity Reaction Status Date / Time meperidine [From Demerol] Allergy Nausea & Verified 10/07/22 11:40 Vomiting morphine Allergy Nausea & Verified 10/07/22 11:40 Vomiting Surgical - Exam Vital Signs Temp 4 F L 10/07/22 11:42 - General well developed, well nourished - Eyes PERRL - ENT normal pinna - Neck no masses - Respiratory normal expansion - Cardiovascular Rhythm: regular - Abdomen Abdomen: soft, non tender Assessment and Plan Assessment: We'll perform screening colonoscopy
--- NOTE | 2022-10-07 12:20 | P.OP ---
Date of Procedure: 10/07/22 Preoperative Diagnosis: Screening colonoscopy Postoperative Diagnosis: Normal colonoscopy Procedure(s) Performed: Colonoscopy Anesthesia: MAC Surgeon: Cruz Ch Pathology: none sent Condition: stable Disposition: PACU Description of Procedure: PROCEDURE: The patient was placed on the endoscopy table in the lateral position. Digital rectal examination was performed which revealed no abnormalities. The prostate was symmetrical without nodules. Flexible colonoscope was then placed in the patient's anus and passed throughout the entire colon. The ileocecal valve was visualized. The cecum, ascending, transverse, descending and sigmoid colon were normal. The rectum was normal as well. There were no masses, polyps or diverticula noted in the entire colon. SUMMARY OF FINDINGS: Normal colonoscopy.
[2022-10-07 13:03] VITALS: BP 107/72; PULSE 75; RESP 18
== END 2022-10-07 13:24 | disposition home or self-care (01) ==
LOC: ORWHC2ENDO 11:05
PROVIDERS: ATTEND Surgery
DX: Z12.31 Encounter for screening mammogram for malignant neoplasm of breast (principal); E78.5 Hyperlipidemia, unspecified; M19.90 Unspecified osteoarthritis, unspecified site; M79.7 Fibromyalgia; Z86.711 Personal history of pulmonary embolism; D64.9 Anemia, unspecified; Z90.49 Acquired absence of other specified parts of digestive tract; Z87.891 Personal history of nicotine dependence; H40.9 Unspecified glaucoma; F10.20 Alcohol dependence, uncomplicated; Z82.3 Family history of stroke; Z82.49 Family history of ischemic heart disease and other diseases of the circulatory system; Z79.1 Long term (current) use of non-steroidal anti-inflammatories (NSAID); Z79.899 Other long term (current) drug therapy; Z88.5 Allergy status to narcotic agent
CPT/HCPCS: 45378; J2704; J2001

== ENCOUNTER → 2023-03-19 | Outpatient (CLI) | payer BC ==
--- NOTE | 2023-03-19 13:29 | XR ---
EXAMINATION TYPE: XR femur RT DATE OF EXAM: 03/19/2023 COMPARISON: NONE HISTORY: Pain. FINDINGS: Hypertrophic moderate arthropathy of the joint correlate for femoral acetabular impingement. Mild dif fuse osteopenia. SI joints patent. Vascular calcifications noted. No acute fracture. Hypertrophic abbe nges along the iliac crest likely in the basis of enthesophytes. There is mild to moderate arthropathy with marginal spurring medial compartment and patellofemoral co mpartment knee joint with small amount of fluid in the suprapatellar bursa. IMPRESSION: 1. Moderate right hip arthropathy correlate for femoral acetabular impingement. 2. Mild to moderate knee arthropathy in a pattern compatible with osteoarthritis.
--- NOTE | 2023-03-19 14:17 | XR ---
EXAMINATION TYPE: XR Hip Complete RT DATE OF EXAM: 03/19/2023 COMPARISON: NONE HISTORY: Pain TECHNIQUE: 2 views submitted FINDINGS: Hypertrophic moderate arthropathy of the joint correlate for femoral acetabular impingement. Mild dif fuse osteopenia. SI joints patent. Vascular calcifications noted. No acute fracture. Hypertrophic abbe nges along the iliac crest likely in the basis of enthesophytes. IMPRESSION: 1. Moderate right hip arthropathy correlate for femoral acetabular impingement.
--- NOTE | 2023-03-19 15:03 | XR ---
EXAM TYPE: LUMBAR SPINE X RAY SERIES COMPARISON: NONE HISTORY: Pain TECHNIQUE: 4 views are submitted. FINDINGS: Alignment is anatomic. The pedicles are intact. The transverse processes are intact. There is no s pondylolysis or spondylolisthesis. Multilevel hypertrophic and degenerative changes spine and facet arthropathy. Grade 1 anterolisthesis L4-5. Diffuse osteopenia. Bilateral hip arthropathy. IMPRESSION: 1. Multilevel degenerative disc disease with facet arthropathy. Suspect foraminal encroachment L4-5 a nd L5-S1. Grade 1 anterolisthesis L4-5.
== END | disposition home or self-care (01) ==
LOC: RADXRMAIN 12:38
PROVIDERS: ATTEND Internal Medicine
DX: M12.851 Other specific arthropathies, not elsewhere classified, right hip (principal); M51.36 Other intervertebral disc degeneration, lumbar region; M47.816 Spondylosis without myelopathy or radiculopathy, lumbar region; M43.16 Spondylolisthesis, lumbar region
CPT/HCPCS: 72100; 73502

== ENCOUNTER → 2023-07-18 | Outpatient (CLI) | payer BC ==
--- NOTE | 2023-07-18 18:21 | CA ---
Transthoracic Echo Report Name: Harpreet Proctor Age: 63 Gender: M : 1960 Exam Date: 07/18/2023 14:12 Exam Location: [facility] Ht (in): 67 Wt (lb): 193 Ordering Physician: Claus Young MD Attending/Referring Phys: Claus Young MD It Trainee Rafia Barlow RDCS Procedure CPT: Indications: R00.2 palpitations Cardiac Hx: Technical Quality: Fair Contrast 1: Total Dose (mL): Contrast 2: Total Dose (mL): MEASUREMENTS (Male / Female) Normal Values 2D ECHO LV Diastolic Diameter PLAX 3.9 cm 4.2 - 5.9 / 3.9 - 5.3 cm LV Systolic Diameter PLAX 2.9 cm IVS Diastolic Thickness 1.1 cm 0.6 - 1.0 / 0.6 - 0.9 cm LVPW Diastolic Thickness 1.3 cm 0.6 - 1.0 / 0.6 - 0.9 cm LV Relative Wall Thickness 0.6 RV Internal Dim ED PLAX 2.8 cm LA Volume 29.7 cm??? 18 - 58 / 22 - 52 cm??? LA Volume Index 14.4 cm???/m??? 16 - 28 cm???/m??? M-MODE Aortic Root Diameter MM 3.2 cm LA Systolic Diameter MM 4.0 cm LA Ao Ratio MM 1.3 AV Cusp Separation MM 2.3 cm DOPPLER AV Peak Velocity 120.3 cm/s AV Peak Gradient 5.8 mmHg AV Mean Velocity 78.4 cm/s AV Mean Gradient 2.9 mmHg AV Velocity Time Integral 18.5 cm LVOT Peak Velocity 97.1 cm/s LVOT Peak Gradient 3.8 mmHg LVOT Velocity Time Integral 16.8 cm MV Area PHT 4.0 cm??? Mitral E Point Velocity 60.1 cm/s Mitral A Point Velocity 111.0 cm/s Mitral E to A Ratio 0.5 MV Deceleration Time 189.5 ms MV E' Velocity 8.2 cm/s Mitral E to MV E' Ratio 7.3 TR Peak Velocity 203.3 cm/s TR Peak Gradient 16.5 mmHg Right Ventricular Systolic Press 21.5 mmHg FINDINGS Left Ventricle Mildly increased left ventricular wall thickness. Left ventricular cavity size normal. Normal left ventricular systolic function with no obvious regional wall motion abnormalities. Left ventricular ejection fraction is estimated at 55-60 %. Right Ventricle Normal right ventricular size and function. Right ventricular systolic pressure within normal limits. Right Atrium Normal right atrial size. Left Atrium Normal left atrial size. Mitral Valve Structurally normal mitral valve. Mitral valve thickened. Mild mitral regurgitation. Aortic Valve No aortic valve stenosis or regurgitation.trileaflet aortic valve. Tricuspid Valve Structurally normal tricuspid valve. Mild tricuspid regurgitation. Pulmonic Valve Pulmonic valve not well visualized. Trace pulmonic regurgitation. Pericardium No pericardial effusion. Aorta Normal size aortic root and proximal ascending aorta. CONCLUSIONS 1. Normal left ventricle size and systolic function 2. Mild mitral and tricuspid regurgitation Previewed by: Dr. Sarahy Pastor MD (Electronically Signed) Final Date: 18 July 2023 18:21
== END | disposition home or self-care (01) ==
LOC: RADECHMAIN 14:01
PROVIDERS: ATTEND Internal Medicine
DX: I34.0 Nonrheumatic mitral (valve) insufficiency (principal); I36.1 Nonrheumatic tricuspid (valve) insufficiency; R00.2 Palpitations
CPT/HCPCS: 93306

== ENCOUNTER → 2023-08-01 | Outpatient (CLI) | payer BC ==
--- NOTE | 2023-08-02 18:42 | US ---
EXAMINATION TYPE: US carotid duplex BILAT DATE OF EXAM: 08/01/2023 COMPARISON: NONE CLINICAL INDICATION: Male, 63 years old with history of I65.23 OCCLUSION AND STENOSIS OF BILATERAL CA ROTID; stenosis high heartrate TECHNIQUE: Carotid duplex ultrasound examination. Indirect Doppler criteria was utilized. FINDINGS: EXAM MEASUREMENTS: RIGHT: Peak Systolic Velocity (PSV) cm/sec ----- Right CCA: 98.2 ----- Right ICA: 83.7 ----- Right ECA: 92.4 ICA/CCA ratio: 0.9 RIGHT: End Diastole cm/sec ----- Right CCA: 27 ----- Right ICA: 24.1 ----- Right ECA: 12.5 LEFT: Peak Systolic Velocity (PSV) cm/sec ----- Left CCA: 99.7 ----- Left ICA: 66.7 ----- Left ECA: 84.1 ICA/CCA ratio: 0.7 LEFT: End Diastole cm/sec ----- Left CCA: 25.6 ----- Left ICA: 27.5 ----- Left ECA: 15.8 VERTEBRALS (direction of flow): Right Vertebral: Antegrade Left Vertebral: Antegrade Rhythm: Normal BINDERY CUTTER OPERATOR NOTES: No significant stenosis seen IMPRESSION: No hemodynamically significant internal carotid artery stenosis on either side. Criteria for Assigning % of Stenosis / Diameter reduction (Estimation based on the indirect measurements of the internal carotid artery velocities (ICA PSV). 1. Normal (no stenosis)=ICA PSV < 125 cm/s: ratio < 2.0: ICA EDV<40 cm/s. 2. Less than 50% stenosis=ICA PSV < 125 cm/s: ratio < 2.0: ICA EDV<40 cm/s. 3. 50 to 69% stenosis=ICA PSV of 125 to 230 cm/s: ration 2.0 ? 4.0: ICA EDV 40-100 cm/s. 4. Greater than 70% stenosis to near occlusion= ICA PSV > 230 cm/s: ratio > 4.0: ICA EDV > 100 cm/s. 5. Near occlusion= ICA PSV velocities may be low or undetectable: variable ratio and ICA EDV. 6. Total occlusion=unable to detect flow.
== END | disposition home or self-care (01) ==
LOC: RADUSWWP 15:18
PROVIDERS: ATTEND Internal Medicine
DX: I65.23 Occlusion and stenosis of bilateral carotid arteries (principal)
CPT/HCPCS: 93880

== ENCOUNTER 2024-03-30 17:28 | Observation (INO) | payer BC, MEDICARE ==
--- NOTE | 2024-03-30 19:19 | ED ---
General Adult HPI - General Chief complaint: Abdominal Pain Stated complaint: CT scan Time Seen by Provider: 03/30/24 17:40 Source: patient, RN notes reviewed, old records reviewed Mode of arrival: ambulatory Limitations: no limitations - History of Present Illness Initial comments: This is a 64-year-old male who presents to the emergency department complaining that he is having some lower abdominal pain. Patient states he has not a bowel movement or passed gas in a few days. Patient states he was evaluated at [facility] and discharged home with a diagnosis of constipation. Patient went to see the primary medical care doctor and the doctor wanted us to see the patient evaluate the patient and get a CAT scan of his abdomen pelvis. Patient denies vomiting but has had some dry heaving. Patient has no fever chills. - Related Data Home Medications Medication Instructions Recorded Confirmed Cyclobenzaprine [Flexeril] 10 mg PO HS 11/26/18 10/07/22 Latanoprost [Xalatan 0.005%] 1 drop BOTH EYES HS 11/26/18 10/07/22 Pantoprazole Sodium [Protonix] 20 mg PO DAILY 06/12/21 10/07/22 Rivaroxaban [Xarelto] 20 mg PO QAM 06/12/21 10/07/22 Celecoxib [CeleBREX] 200 mg PO DAILY 09/30/22 09/30/22 Ezetimibe [Zetia] 10 mg PO DAILY 09/30/22 10/07/22 Rosuvastatin Calcium 5 mg PO DAILY 09/30/22 10/07/22 acetaZOLAMIDE [Diamox Sequels] 500 mg PO DAILY 09/30/22 10/07/22 Allergies Allergy/AdvReac Type Severity Reaction Status Date / Time meperidine [From Demerol] Allergy Nausea & Verified 03/30/24 17:46 Vomiting morphine Allergy Nausea & Verified 03/30/24 17:46 Vomiting Review of Systems ROS Statement: Those systems with pertinent positive or pertinent negative responses have been documented in the HPI. ROS Other: All systems not noted in ROS Statement are negative. Past Medical History Past Medical History: Eye Disorder, Fibromyalgia, Hyperlipidemia, Osteoarthritis (OA), Pulmonary Embolus (PE), Skin Disorder Additional Past Medical History / Comment(s): Hx PE 2018. Glaucoma. Mild Ezcema. Anemia. History of Any Multi-Drug Resistant Organisms: None Reported Past Surgical History: Appendectomy, Orthopedic Surgery Additional Past Surgical History / Comment(s): Bilateral carpal tunnel surgery, right shoulder surgery, right knee surgery. Past Anesthesia/Blood Transfusion Reactions: No Reported Reaction Past Psychological History: No Psychological Hx Reported Smoking Status: Former smoker Past Alcohol Use History: Occasional Past Drug Use History: None Reported - Past Family History Father Family Medical History: CVA/TIA, Vascular Disorder Additional Family Medical History / Comment(s): Father at the age of 67yrs possibly from CVA, valvular disease. Mother Family Medical History: Coronary Artery Disease (CAD) Additional Family Medical History / Comment(s): Mother at the age of 84 yrs from "old age." Sister(s) Family Medical History: Cancer, Deep Vein Thrombosis (DVT) General Exam - General Exam Comments Initial Comments: GENERAL: Patient is well-developed and well-nourished. Patient is nontoxic and well- hydrated and is in mild distress. ENT: Neck is soft and supple. No significant lymphadenopathy is noted. Oropharynx is clear. Moist mucous membranes. Neck has full range of motion without eliciting any pain. EYES: The sclera were anicteric and conjunctiva were pink and moist. Extraocular movements were intact and pupils were equal round and reactive to light. Eyelids were unremarkable. PULMONARY: Unlabored respirations. Good breath sounds bilaterally. No audible rales rhonchi or wheezing was noted. CARDIOVASCULAR: There is a regular rate and rhythm without any murmurs gallops or rubs. ABDOMEN: Abdomen is distended and mildly tender but no point tenderness SKIN: Skin is clear with no lesions or rashes and otherwise unremarkable. NEUROLOGIC: Patient is alert and oriented x3. Cranial nerves II through XII are grossly intact. Motor and sensory are also intact. Normal speech, volume and content. Symmetrical smile. MUSCULOSKELETAL: Normal extremities with adequate strength and full range of motion. No lower extremity swelling or edema. No calf tenderness. LYMPHATICS: No significant lymphadenopathy is noted PSYCHIATRIC: Normal psychiatric evaluation. Limitations: no limitations Course Vital Signs 03/30/24 17:42 Temperature 98.2 F Pulse Rate 101 H Respiratory 20 Rate Blood Pressure 135/85 O2 Sat by Pulse 97 Oximetry Medical Decision Making - Medical Decision Making Was pt. sent in by a medical professional or institution (, PA, HIDE HOUSE SUPERVISOR, urgent care, hospital, or usp...) When possible be specific @ -Sent in by Dr. Young Did you speak to anyone other than the patient for history (EMS, parent, family, police, friend...)? What history was obtained from this source @ -I spoke with Dr. Johnson by the patient's arrival. Did you review nursing and triage notes (agree or disagree)? Why? @ -I reviewed and agree with nursing and triage notes Were old charts reviewed (outside hosp., previous admission, EMS record, old EKG, old radiological studies, urgent care reports/EKG's, usp records)? Report findings @ -No old charts were reviewed Differential Diagnosis? @ -MDM abdominal pain men EKG interpreted by me (3pts min.). @ -As above X-rays interpreted by me (1pt min.). @ -None done CT interpreted by me (1pt min.). @ -CT abdomen pelvis shows constipation and a 7 mm left-sided distal ureter kidney stone with mild hydronephrosis U/S interpreted by me (1pt. min.). @ -None done What testing was considered but not performed or refused? (CT, X-rays, U/S, labs)? Why? @ -None What meds were considered but not given or refused? Why? @ -None Did you discuss the management of the patient with other professionals (professionals i.e. , PA, HIDE HOUSE SUPERVISOR, lab, RT, psych nurse, director social welfare, web developer programmer, teacher, public affairs officer, field nurse case manager)? Give summary @ -I spoke with Dr. Young he agreed to admit the patient and the patient wrote admitting orders Was smoking cessation discussed for >3mins.? @ -No Was critical care preformed (if so, how long)? @ -No Were there social determinants of health that impacted care today? How? (Homelessness, low income, unemployed, alcoholism, drug addiction, transportation, low edu. Level, literacy, decrease access to med. care, correction, rehab)? @ -No Was there de-escalation of care discussed even if they declined (Discuss DNR or withdrawal of care, Hospice)? DNR status @ -No What co-morbidities impacted this encounter? (DM, HTN, Smoking, COPD, CAD, Cancer, CVA, ARF, Chemo, Hep., AIDS, mental health diagnosis, sleep apnea, morbid obesity)? @ -None Was patient admitted / discharged? Hospital course, mention meds given and route, prescriptions, significant lab abnormalities, going to OR and other pertinent info. @ -Patient had a kidney stone was given Toradol for the discomfort. Patient also was very constipated and was given an enema and mag citrate. Undiagnosed new problem with uncertain prognosis? @ -No Drug Therapy requiring intensive monitoring for toxicity (Heparin, Nitro, Insulin, Cardizem)? @ -No Were any procedures done? @ -No Diagnosis/symptom? @ -Kidney stone Acute, or Chronic, or Acute on Chronic? @ -Acute Uncomplicated (without systemic symptoms) or Complicated (systemic symptoms)? @ -Complicated Side effects of treatment? @ -No Exacerbation, Progression, or Severe Exacerbation? @ -No Poses a threat to life or bodily function? How? (Chest pain, [place], [place], pneumonia, PE, COPD, DKA, ARF, appy, cholecystitis, CVA, Diverticulitis, Homicidal, Suicidal, threat to staff... and all critical care pts) @ -No Diagnosis/symptom? @ -Constipation Acute, or Chronic, or Acute on Chronic? @ -Acute Uncomplicated (without systemic symptoms) or Complicated (systemic symptoms)? @ -Uncomplicated Side effects of treatment? @ -None Exacerbation, Progression, or Severe Exacerbation] @ -No Poses a threat to life or bodily function? @ -No - Lab Data Result diagrams: 03/30/24 19:23 03/30/24 19:23 Lab Results 03/30/24 03/30/24 03/30/24 Range/Units 19:23 19:23 19:23 WBC 12.1 H (3.8-10.6) k/uL RBC 4.65 (4.30-5.90) m/uL Hgb 13.8 (13.0-17.5) gm/dL Hct 40.9 (39.0-53.0) % MCV 88.0 (80.0-100.0) fL MCH 29.7 (25.0-35.0) pg MCHC 33.7 (31.0-37.0) g/dL RDW 13.2 (11.5-15.5) % Plt Count 190 (150-450) k/uL MPV 7.2 Neutrophils % 81 % Lymphocytes % 11 % Monocytes % 7 % Eosinophils % 0 % Basophils % 0 % Neutrophils # 9.7 H (1.3-7.7) k/uL Lymphocytes # 1.3 (1.0-4.8) k/uL Monocytes # 0.8 (0-1.0) k/uL Eosinophils # 0.0 (0-0.7) k/uL Basophils # 0.0 (0-0.2) k/uL Sodium 134 L (137-145) mmol/L Potassium 3.8 (3.5-5.1) mmol/L Chloride 105 (98-107) mmol/L Carbon Dioxide 17 L (22-30) mmol/L Anion Gap 12 mmol/L BUN 19 (9-20) mg/dL Creatinine 1.57 H (0.66-1.25) mg/dL Est GFR (CKD-EPI)AfAm 53 (>60 ml/min/1.73 sqM) Est GFR (CKD-EPI)NonAf 46 (>60 ml/min/1.73 sqM) Glucose 99 (74-99) mg/dL Plasma Lactic Acid Nish 0.9 (0.7-2.0) mmol/L Calcium 8.8 (8.4-10.2) mg/dL Total Bilirubin 1.2 (0.2-1.3) mg/dL AST 26 (17-59) U/L ALT 19 (4-49) U/L Alkaline Phosphatase 86 (38-126) U/L Total Protein 7.4 (6.3-8.2) g/dL Albumin 4.4 (3.5-5.0) g/dL Amylase 49 (30-110) U/L Lipase 63 (23-300) U/L Disposition Clinical Impression: Constipation, Kidney stone Disposition: ADMITTED IP TO THIS [facility] Referrals: Claus Young MD [Primary Care Provider] - 1-2 days Time of Disposition: 20:32
[2024-03-30 19:56] LABS: Basophils % (A) 0 %; Eosinophils % (A) 0 %; HCT 40.9 % (39.0-53.0); HGB 13.8 gm/dL (13.0-17.5); Lymphocytes # (A) 1.3 k/uL (1.0-4.8); Lymphocytes % (A) 11 %; MCH 29.7 pg (25.0-35.0); MCHC 33.7 g/dL (31.0-37.0); Mean Platelet Volume 7.2; Monocytes # (A) 0.8 k/uL (0-1.0); Monocytes % (A) 7 %; Neutrophils # (A) 9.7 k/uL (1.3-7.7); Neutrophils % (A) 81 %; Platelet Count 190 k/uL (150-450); RBC 4.65 m/uL (4.30-5.90); RDW 13.2 % (11.5-15.5); WBC 12.1 k/uL (3.8-10.6)
[2024-03-30 20:12] LABS: ALT 19 U/L (4-49); AST 26 U/L (17-59); African American GFR (CKD) 53 (>60 ml/min/1.73 sqM); Albumin 4.4 g/dL (3.5-5.0); Alkaline Phosphatase 86 U/L (38-126); Amylase 49 U/L (30-110); Anion Gap 12 mmol/L; Blood Urea Nitrogen 19 mg/dL (9-20); Calcium 8.8 mg/dL (8.4-10.2); Carbon Dioxide 17 mmol/L (22-30); Chloride 105 mmol/L (98-107); Glucose 99 mg/dL (74-99); Lipase 63 U/L (23-300); Non-African American GFR(CKD) 46 (>60 ml/min/1.73 sqM); Potassium 3.8 mmol/L (3.5-5.1); Sodium 134 mmol/L (137-145); Total Bilirubin 1.2 mg/dL (0.2-1.3); Total Protein 7.4 g/dL (6.3-8.2)
--- NOTE | 2024-03-30 20:15 | CT ---
EXAMINATION TYPE: CT abdomen pelvis wo con CT DLP: 742.5 mGycm, Automated exposure control for dose reduction was used. DATE OF EXAM: 03/30/2024 7:40 PM COMPARISON: 06/13/2011 CLINICAL INDICATION: Male, 64 years old with history of abdominal pain; Abdominal pain starting in mi d abdomen and has been slowly moving down into lower abdomen. Hasn't had bowel movement in 4 days. TECHNIQUE: Axial CT abdomen pelvis wo con;Sagittal and coronal reformats were created on a separate workstation. Contrast used: mL of , (none if empty) Oral contrast used: without Oral Contrast (none if empty) FINDINGS: LOWER CHEST: Unremarkable ABDOMEN LIVER: Unremarkable GALLBLADDER AND BILE DUCTS: Unremarkable. PANCREAS: Unremarkable. SPLEEN: Unremarkable. ADRENAL GLANDS: Unremarkable. KIDNEYS AND URETERS: Mild left hydronephrosis secondary obstructing 7 mm calculus in the distal left ureter. Nonobstructing right 6 mm calculus. No right hydronephrosis. Left renal cortical probable cys t. PELVIS BLADDER: Unremarkable REPRODUCTIVE: Unremarkable. ABDOMEN & PELVIS STOMACH AND BOWEL: No evidence of bowel obstruction. Large amount stool in the colon. PERITONEUM/RETROPERITONEUM: No evidence of pneumoperitoneum or free fluid. VASCULATURE: No evidence of aortic aneurysm. MUSCULOSKELETAL: No acute osseous abnormalities. Moderate disc degeneration changes are present throu ghout the thoracolumbar spine. Right hip arthroplasty appears intact. LYMPH NODES: No gross evidence for lymphadenopathy. SOFT TISSUE/ABDOMINAL WALL: Fat-containing buccal hernia. IMPRESSION: 1. Mild left hydronephrosis secondary obstructing 7 mm calculus in the distal left ureter. 2. Nonobstructing right renal calculus. [facility], , 03/30/2024 8:12 PM
[2024-03-30] MEDS: KETOROLAC 15 MG/ML 1 ML VIAL IVP STA (20:22)
[2024-03-30] MEDS: SODIUM CHLORIDE 0.9% 1,000 ML IV ONE (21:56)
[2024-03-30] MEDS: MAGNESIUM CITRATE 296 ML BOTTLE PO ONE (21:57)
[2024-03-30] MEDS: KETOROLAC 15 MG/ML 1 ML VIAL IVP SCH (23:15)
[2024-03-31 03:17] LABS: Appearance,Urine Clear (Clear); Bilirubin,Urine Negative (Negative); Blood,Urine Moderate (Negative); Color,Urine Yellow; Glucose,Urine (UA) Negative (Negative); Hyaline Casts,Urine 9 /lpf (0-2); Ketones,Urine 1+ (Negative); Leukocyte Esterase,Urine Negative (Negative); Mucus,Urine Rare /hpf; Nitrite,Urine Negative (Negative); PH, Urine 5.5 (5.0-8.0); Protein,Urine Trace (Negative); RBC,Urine 13 /hpf (0-5); Specific Gravity,Urine 1.018 (1.001-1.035); Urobilinogen,Urine <2.0 mg/dL (<2.0); WBC,Urine 2 /hpf (0-5)
[2024-03-31 08:29] VITALS: BP 113/78; PULSE 92; RESP 18; TEMP 97.8
--- NOTE | 2024-03-31 08:50 | P.GSCN ---
History of Present Illness Consult date: 03/31/24 Reason for Consult: Left ureteral calculus Requesting physician: Claus Young History of present illness: The patient is a 64-year-old white male with no prior history of urolithiasis. He presented to the ER with lower abdominal discomfort. He indicated that he has not had a bowel movement or passed gas for several days. A CT scan of the abdomen and pelvis was obtained, revealing mild left hydronephrosis due to a 7 mm left distal ureteral calculus. He is comfortable this morning at the time of his evaluation. Review of Systems - Gastrointestinal Reports constipation, Reports nausea - Genitourinary Reports flank pain, Reports kidney stones, Denies dysuria, Denies hematuria Past Medical History Past Medical History: Eye Disorder, Fibromyalgia, Hyperlipidemia, Osteoarthritis (OA), Pulmonary Embolus (PE), Skin Disorder Additional Past Medical History / Comment(s): Hx PE 2018. Glaucoma. Mild Ezcema. Anemia. History of Any Multi-Drug Resistant Organisms: None Reported Past Surgical History: Appendectomy, Orthopedic Surgery Additional Past Surgical History / Comment(s): Bilateral carpal tunnel surgery, right shoulder surgery, right knee surgery. Past Anesthesia/Blood Transfusion Reactions: No Reported Reaction Past Psychological History: No Psychological Hx Reported Smoking Status: Former smoker Past Alcohol Use History: Occasional Past Drug Use History: None Reported - Past Family History Father Family Medical History: CVA/TIA, Vascular Disorder Additional Family Medical History / Comment(s): Father at the age of 67yrs possibly from CVA, valvular disease. Mother Family Medical History: Coronary Artery Disease (CAD) Additional Family Medical History / Comment(s): Mother at the age of 84 yrs from "old age." Sister(s) Family Medical History: Cancer, Deep Vein Thrombosis (DVT) Medications and Allergies Home Medications Medication Instructions Recorded Confirmed Type Cyclobenzaprine [Flexeril] 10 mg PO HS PRN 11/26/18 03/30/24 History Latanoprost [Xalatan 0.005%] 1 drop BOTH EYES HS 11/26/18 03/30/24 History Pantoprazole Sodium [Protonix] 20 mg PO DAILY 06/12/21 03/30/24 History Rivaroxaban [Xarelto] 20 mg PO DAILY 06/12/21 03/30/24 History Celecoxib [CeleBREX] 200 mg PO DAILY 09/30/22 03/30/24 History Ezetimibe [Zetia] 10 mg PO DAILY 09/30/22 03/30/24 History Rosuvastatin Calcium 5 mg PO DAILY 09/30/22 03/30/24 History acetaZOLAMIDE [Diamox Sequels] 500 mg PO BID 09/30/22 03/30/24 History Metoprolol Succinate [Metoprolol 12.5 mg PO HS 03/30/24 03/30/24 History Succinate ER] Simethicone [Simethicone Chew] 160 mg PO Q6H PRN 03/30/24 03/30/24 History polyethylene glycoL 3350 [Miralax] 17 gm PO DAILY 03/30/24 03/30/24 History Allergies Allergy/AdvReac Type Severity Reaction Status Date / Time meperidine [From Demerol] Allergy Nausea & Verified 03/30/24 20:49 Vomiting morphine Allergy Nausea & Verified 03/30/24 20:49 Vomiting Surgical - Exam Vital Signs Temp Pulse Resp BP Pulse Ox 98.2 F 101 H 20 135/85 97 03/30/24 17:42 03/30/24 17:42 03/30/24 17:42 03/30/24 17:42 03/30/24 17:42 - General well developed, well nourished, no distress - Respiratory normal respiratory effort - Abdomen Abdomen: soft, non tender, no guarding, no rigid, no rebound - Genitourinary normal penis with no external lesions, testicles non-tender - Psychiatric oriented to time, oriented to person, oriented to place, speech is normal, memory intact Results - Labs 03/30/24 19:23 03/30/24 19:23 Abnormal Lab Results - Last 24 Hours (Table) 03/30/24 03/30/24 03/31/24 Range/Units 19:23 19: 02:54 WBC 12.1 H (3.8-10.6) k/uL Neutrophils # 9.7 H (1.3-7.7) k/uL Sodium 134 L (137-145) mmol/L Carbon Dioxide 17 L (22-30) mmol/L Creatinine 1.57 H (0.66-1.25) mg/dL Urine Protein Trace H (Negative) Urine Ketones 1+ H (Negative) Urine Blood Moderate H (Negative) Urine RBC 13 H (0-5) /hpf Hyaline Casts 9 H (0-2) /lpf Urine Mucus Rare H (None) /hpf Diabetes panel 03/30/24 Range/Units 19:23 Sodium 134 L (137-145) mmol/L Potassium 3.8 (3.5-5.1) mmol/L Chloride 105 (98-107) mmol/L Carbon Dioxide 17 L (22-30) mmol/L BUN 19 (9-20) mg/dL Creatinine 1.57 H (0.66-1.25) mg/dL Glucose 99 (74-99) mg/dL Calcium 8.8 (8.4-10.2) mg/dL AST 26 (17-59) U/L ALT 19 (4-49) U/L Alkaline Phosphatase 86 (38-126) U/L Total Protein 7.4 (6.3-8.2) g/dL Albumin 4.4 (3.5-5.0) g/dL Calcium panel 03/30/24 Range/Units 19:23 Calcium 8.8 (8.4-10.2) mg/dL Albumin 4.4 (3.5-5.0) g/dL Pituitary panel 03/30/24 Range/Units 19:23 Sodium 134 L (137-145) mmol/L Potassium 3.8 (3.5-5.1) mmol/L Chloride 105 (98-107) mmol/L Carbon Dioxide 17 L (22-30) mmol/L BUN 19 (9-20) mg/dL Creatinine 1.57 H (0.66-1.25) mg/dL Glucose 99 (74-99) mg/dL Calcium 8.8 (8.4-10.2) mg/dL Adrenal panel 03/30/24 Range/Units 19:23 Sodium 134 L (137-145) mmol/L Potassium 3.8 (3.5-5.1) mmol/L Chloride 105 (98-107) mmol/L Carbon Dioxide 17 L (22-30) mmol/L BUN 19 (9-20) mg/dL Creatinine 1.57 H (0.66-1.25) mg/dL Glucose 99 (74-99) mg/dL Calcium 8.8 (8.4-10.2) mg/dL Total Bilirubin 1.2 (0.2-1.3) mg/dL AST 26 (17-59) U/L ALT 19 (4-49) U/L Alkaline Phosphatase 86 (38-126) U/L Total Protein 7.4 (6.3-8.2) g/dL Albumin 4.4 (3.5-5.0) g/dL - Imaging CT scan - abdomen: report reviewed, image reviewed Assessment and Plan (1) Calculus of ureter Current Visit: Yes Status: Acute Code(s): N20.1 - CALCULUS OF URETER SNOMED Code(s): 19229948 (2) Hydronephrosis with renal and ureteral calculous obstruction Current Visit: Yes Status: Acute Code(s): N13.2 - HYDRONEPHROSIS WITH RENAL AND URETERAL CALCULOUS OBSTRUCTION SNOMED Code(s): 562544633 Plan: I had a lengthy discussion with Mr. Proctor regarding his ureteral calculus. His calculus has an approximately 60% chance of passing, and medical expulsion therapy was discussed as an option. Surgical options were also discussed, namely ureteroscopy with laser lithotripsy versus extracorporal shockwave lithotripsy (ESWL). The pros and cons of each option were reviewed with him in detail. He wishes to consider these options and discuss them with his . If he chooses not to undergo surgery at this time, it would be my recommendation that he be discharged home with prescriptions for tamsulosin, analgesics, and antiemetics. He will follow-up with me as an outpatient. Also discussed as an option was to schedule ureteroscopic removal of the calculus in approximately 2- 3 weeks, thus giving him time to pass the calculus. Time with Patient: Greater than 30
[2024-03-31] MEDS ORDERED: SIMETHICONE 80 MG CHEWABLE PO PRN (11:21)
[2024-03-31] MEDS ORDERED: CYCLOBENZAPRINE 10 MG TAB PO PRN (11:21)
[2024-03-31] MEDS ORDERED: METOPROLOL SUCCINATE (ER) 25 MG TAB.ER.24H PO SCH (21:00)
[2024-03-31] MEDS ORDERED: LATANOPROST 0.005% OPHTH DROPS 2.5 ML BTL BOTH EYES SCH (21:00)
[2024-03-31] MEDS ORDERED: acetaZOLAMIDE 250 MG TAB PO SCH (21:00)
[2024-04-01] MEDS ORDERED: EZETIMIBE 10 MG TAB PO SCH (09:00)
[2024-04-01] MEDS ORDERED: polyethylene glycoL 3350 17 GM POWD.PACK PO SCH (09:00)
[2024-04-01] MEDS ORDERED: PANTOPRAZOLE 40 MG TABLET PO SCH (09:00)
[2024-04-01] MEDS ORDERED: ATORVASTATIN 10 MG TAB PO SCH (09:00)
[2024-04-01] MEDS ORDERED: RIVAROXABAN 20 MG TAB PO SCH (09:00)
--- NOTE | 2024-04-03 10:38 | P.HPIM ---
History of Present Illness H&P Date: 03/31/24 Chief Complaint: Abdominal pain/constipation/left distal ureteral stone This is a history and physical and discharge summary. HISTORY OF PRESENT ILLNESS: This is a 64-year-old male with a previous medical history significant for bilateral pulmonary embolism currently anticoagulated with Xarelto 20 mg once every day, history of mixed hyperlipidemia, osteoarthritis glaucoma, patient was recently evaluated at the the emergency department at [facility] where he was found to have a significant and severe constipation, after he had abdominal x-ray that showed severe constipation at that time patient was discharged home and was supposed to be started on MiraLAX as well as stool softener patient came to the office for evaluation yesterday and he has had severe abdominal pain associated with burping and not passing any gas, his abdomen was quite distended, he was complaining of left-sided abdominal pain associated with nausea but no vomiting, he was referred to the emergency department to have a CT scan of the abdomen and pelvis without contrast that showed evidence of severe constipation along with distal left ureteral stone about 7 mm with mild left hydronephrosis, patient was started on IV fluid resuscitation in the form of normal saline at 100 cc an hour, he was placed on pain management as well as Flomax 0.4 mg once every day, he was seen in consultation by urology who recommended for the patient to be started on pain management IV fluid as well as Flomax, and the patient elected to go home and follow-up with them as an outpatient to discuss options of treatment including cystoscopy with ureteral stent placement also extracorporeal shockwave lithotripsy and possible laser surgery as well patient also was given magnesium citrate in the emergency department as well as an enema he did have a good bowel movement, patient is feeling better now, he wanted to be discharged home and try the to pass the stone on his own, patient was given a prescription for Flomax 0.4 mg once every day, he was also given prescription for pain management as well he will be discharged home and follow-up with us as an outpatient. REVIEW OF SYSTEMS: Constitutional: No documented fever, no chills, no night sweats. No weight change. No weakness, fatigue or lethargy. No daytime sleepiness. EENT: No headache. No blurred vision or double vision, no loss of vision. No loss of Hearing, no ringing in the ears, no dizziness. No nasal drainage or congestion. No epistaxis. No sore throat. Lungs: No shortness of breath, no cough, no sputum production. No wheezing. Reports dyspnea with activity. Cardiovascular: No chest pain, no lower extremity edema. No palpitations. No paroxysmal nocturnal dyspnea. No orthopnea. No lightheadedness or dizziness. No syncopal episodes. Abdominal: Reports abdominal pain. positive for nausea,no vomiting. No diarrhea. positive for constipation. No bloody or tarry stools reports loss of appetite. Genitourinary: No dysuria, increased frequency, urgency. No urinary retention. Musculoskeletal: No myalgias. No muscle weakness, no gait dysfunction, no frequent falls. positive for back pain. No neck pain. Integumentary: No wounds, no lesions. No rash or pruritus. No unusual bruising. No change in hair or nails. Neurologic: No aphasia. No facial droop. No change in mentation. No head injury. No headache. No paralysis. No paresthesia. Psychiatric: No depression. No anxiety. No mood swings. Endocrine: No abnormal blood sugars. No weight change. PAST MEDICAL HISTORY: History of bilateral pulmonary emboli. Osteoarthritis. Mixed hyperlipidemia. History of glaucoma. GERD. Enlarged prostate. Constipation. Polymyalgia rheumatica. Reactive arthropathy. Carotid artery disease. PAST SURGICAL HISTORY: Bilateral carpal tunnel surgery 2009 Appendectomy 1974 Right shoulder surgery 1975 Right knee arthroscopic surgery 2013 Right eye stent placement Left total hip arthroplasty 2022 Last colonoscopy 2022 SOCIAL HISTORY: Patient is a lifelong non-smoker, he drinks occasionally, he denies any drug use or abuse, he was with his . FAMILY HISTORY: Father at the age of 68 from myocardial infarction had a CVA mother at the age of 82 from congestive heart failure and had coronary artery disease status post CABG x 3 in her 60 to patient has 2 brothers 1 from motor vehicle accident the other 1 is okay patient has 6 sisters 1 from brain cancer and 1 from complications of CVA the rest are okay patient has 1 daughter alive and well. PHYSICAL EXAMINATION: General: 64-year-old male examined in bed in no distress. HEENT: Head is atraumatic, normocephalic, pupils were equal round reactive to light and recommendation, extraocular muscle movement were intact, sclera nonicteric, conjunctivae were pale, mucous membranes of the mouth are somewhat dry. Neck: Supple, no JVP, normal carotid upstroke bilaterally, no lymphadenopathy. Chest: Decreased breath sounds at the bases, few rhonchi, no expiratory wheezes, no chest wall tenderness, no intercostal retractions. Heart: First heart sound is normal, second heart sound is normal there is sy stolic ejection murmur 2/6 located in the left sternal border. Abdomen: Soft, nontender, nondistended, positive bowel sounds. Extremities: There is no edema no calf tenderness DP +2 bilaterally. Neurologic examination: Patient is awake alert and oriented x 3, cranial nerves II-12 appear grossly intact, muscle power were 5 out of 5 in upper extremities and 5 out of 5 in bilateral lower extremities, deep tendon reflexes normal bilaterally. ASSESSMENT AND PLAN: 1. Severe constipation. The patient did receive magnesium citrate bottle x 1, he did receive enema as well, he did have a good bowel movement he was instructed to continue with increased fiber intake, continue stool softener Senokot 2 tablet at bedtime along with MiraLAX 17 g in 8 ounces of water on a daily basis, monitor the patient symptoms very closely. Patient did have a colonoscopy a year ago no reason for repeating colonoscopy at this point in time. 2. Distal left ureteral stone with mild left-sided hydronephrosis. Patient was started on IV fluid resuscitation in the form of normal saline, patient was instructed drink a lot of fluid, he was started on tamsulosin 0.4 mg orally once every day, he was started on pain management per urology, he will follow-up with them as an outpatient for other options of treatment including surgical intervention versus extracorporeal shockwave lithotripsy. Patient was instructe d to go back to the emergency department if he developed to have a significant abdominal pain associated with increased nausea and vomiting and not able to keep his medication down. 3. Acute kidney injury due to obstructive uropathy and the use of English 2 inhibitor. Discontinue Celebrex, continue IV fluid resuscitation, increase oral intake of fluid, continue with Flomax 0.4 mg once every day. 4. None anion gap metabolic acidosis due to the use of acetazolamide. Increase fluid intake, monitor the patient symptoms very closely. Monitor the patient labs and as an outpatient. 5. Hyperkalemia due to acute kidney injury. Resolved. Discontinue Celebrex. 6. Mixed hyperlipidemia. Continue patient on rosuvastatin 5 mg once every day, as well as Zetia 10 mg once every day, monitor the patient up with panel, keep LDL 55-70. 7. Polymyalgia rheumatica. Has resolved. 8. History of glaucoma. Patient is currently on acetazolamide ER 500 mg orally twice every day, has been following with ophthalmology on a regular basis. 9. Reactive arthropathy. Spoke with the patient about stopping Celebrex for now because of acute kidney injury. 10. History of bilateral pulmonary emboli. Continue patient on Xarelto 20 mg once every day for life. 11. Patient was admitted as an observation. 12. Patient will be discharged in stable condition and follow-up with me as an outpatient in 1 week. He is to follow-up with urology next week as well. 13. Patient is full code. Past Medical History Past Medical History: Eye Disorder, Fibromyalgia, Hyperlipidemia, Osteoarthritis (OA), Pulmonary Embolus (PE), Skin Disorder Additional Past Medical History / Comment(s): Hx PE 2018. Glaucoma. Mild Ezcema. Anemia. History of Any Multi-Drug Resistant Organisms: None Reported Past Surgical History: Appendectomy, Orthopedic Surgery Additional Past Surgical History / Comment(s): Bilateral carpal tunnel surgery, right shoulder surgery, right knee surgery. Past Anesthesia/Blood Transfusion Reactions: No Reported Reaction Past Psychological History: No Psychological Hx Reported Smoking Status: Former smoker Past Alcohol Use History: Occasional Past Drug Use History: None Reported - Past Family History Father Family Medical History: CVA/TIA, Vascular Disorder Additional Family Medical History / Comment(s): Father at the age of 67yrs possibly from CVA, valvular disease. Mother Family Medical History: Coronary Artery Disease (CAD) Additional Family Medical History / Comment(s): Mother at the age of 84 yrs from "old age." Sister(s) Family Medical History: Cancer, Deep Vein Thrombosis (DVT) Medications and Allergies Home Medications Medication Instructions Recorded Confirmed Type Cyclobenzaprine [Flexeril] 10 mg PO HS PRN 11/26/18 03/30/24 History Latanoprost [Xalatan 0.005%] 1 drop BOTH EYES HS 11/26/18 03/30/24 History Pantoprazole Sodium [Protonix] 20 mg PO DAILY 06/12/21 03/30/24 History Rivaroxaban [Xarelto] 20 mg PO DAILY 06/12/21 03/30/24 History Ezetimibe [Zetia] 10 mg PO DAILY 09/30/22 03/30/24 History Rosuvastatin Calcium 5 mg PO DAILY 09/30/22 03/30/24 History acetaZOLAMIDE [Diamox Sequels] 500 mg PO BID 09/30/22 03/30/24 History Metoprolol Succinate [Metoprolol 12.5 mg PO HS 03/30/24 03/30/24 History Succinate ER] Simethicone [Simethicone Chew] 160 mg PO Q6H PRN 03/30/24 03/30/24 History polyethylene glycoL 3350 [Miralax] 17 gm PO DAILY 03/30/24 03/30/24 History HYDROcodone/APAP 5-325MG [[place] 1 - 2 tab PO Q4HR PRN #10 tab 03/31/24 Rx 5-325] Ondansetron Odt [Zofran Odt] 4 mg PO Q6HR PRN #10 tab 03/31/24 Rx Tamsulosin HCl [Flomax] 0.4 mg PO DAILY #30 capsule 03/31/24 Rx Allergies Allergy/AdvReac Type Severity Reaction Status Date / Time meperidine [From Demerol] Allergy Nausea & Verified 03/30/24 20:49 Vomiting morphine Allergy Nausea & Verified 03/30/24 20:49 Vomiting Physical Exam Vitals: Vital Signs Temp Pulse Resp BP Pulse Ox 03/31/24 08:27 97.8 F 92 18 113/78 98 03/31/24 06:38 98.6 F 94 15 134/89 100 03/31/24 03:31 98.1 F 95 18 122/77 98 03/30/24 17:42 98.2 F 101 H 20 135/85 97 Intake and Output 03/30/24 03/31/24 03/31/24 22:59 06:59 14:59 Other: Weight 89.811 kg Results CBC & Chem 7: 03/30/24 19:23 03/30/24 19:23 Labs: Abnormal Lab Results - Last 24 Hours (Table) 03/30/24 03/30/24 03/31/24 Range/Units 19:23 19:23 02:54 WBC 12.1 H (3.8-10.6) k/uL Neutrophils # 9.7 H (1.3-7.7) k/uL Sodium 134 L (137-145) mmol/L Carbon Dioxide 17 L (22-30) mmol/L Creatinine 1.57 H (0.66-1.25) mg/dL Urine Protein Trace H (Negative) Urine Ketones 1+ H (Negative) Urine Blood Moderate H (Negative) Urine RBC 13 H (0-5) /hpf Hyaline Casts 9 H (0-2) /lpf Urine Mucus Rare H (None) /hpf
== END 2024-03-31 12:05 | disposition home or self-care (01) ==
LOC: EC 17:28 → 6NMEDSUR 20:34
PROVIDERS: ADMIT Internal Medicine; ATTEND Internal Medicine
DX: N13.2 Hydronephrosis with renal and ureteral calculous obstruction (principal); N17.9 Acute kidney failure, unspecified; E87.20 Acidosis, unspecified; M35.3 Polymyalgia rheumatica; M02.9 Reactive arthropathy, unspecified; K59.00 Constipation, unspecified; E78.2 Mixed hyperlipidemia; E87.5 Hyperkalemia; I25.10 Atherosclerotic heart disease of native coronary artery without angina pectoris; H40.9 Unspecified glaucoma; K21.9 Gastro-esophageal reflux disease without esophagitis; N40.0 Benign prostatic hyperplasia without lower urinary tract symptoms; M19.90 Unspecified osteoarthritis, unspecified site; Z79.01 Long term (current) use of anticoagulants; Z79.1 Long term (current) use of non-steroidal anti-inflammatories (NSAID); Z79.899 Other long term (current) drug therapy; Z87.891 Personal history of nicotine dependence; Z86.711 Personal history of pulmonary embolism; Z88.5 Allergy status to narcotic agent
CPT/HCPCS: 96376 ×2; 96374; 99285; 36415; 80053; 82150; 83605; 83690; 85025; 81001; 74176; G0378 ×2; J1885 ×2

== ENCOUNTER → 2024-04-10 | Outpatient (CLI) | payer BC, MEDICARE ==
--- NOTE | 2024-04-10 11:52 | XR ---
EXAMINATION TYPE: XR KUB DATE OF EXAM: 04/10/2024 11:34 AM COMPARISON: 06/14/2011 CLINICAL INDICATION: Male, 64 years old with history of LEFT URETERAL STONE; [facility] TECHNIQUE: One radiographic view of the abdomen was obtained. FINDINGS: The bowel gas pattern is nonspecific without dilated loops of small or large bowel. . Fecal material and gas are demonstrated throughout the colon and rectum. There is no evidence for organomegaly or pneumoperitoneum. The osseous structures are intact. No ab normal calcifications are present. Right hip arthroplasty with hardware intact. Right renal calculus measuring up to 5 mm. Calculus projecting near the left aspect of sacrum is unchanged from CT positio n. IMPRESSION: Conscious projecting near the left sacrum similar CT. [facility], , 04/10/2024 11:50 AM
== END | disposition home or self-care (01) ==
LOC: RADXRMAIN 11:16
PROVIDERS: ATTEND Internal Medicine
DX: N20.1 Calculus of ureter (principal); Z87.442 Personal history of urinary calculi
CPT/HCPCS: 74018

== ENCOUNTER 2024-04-20 10:42 | Day surgery (SDC) | payer BC ==
[2024-04-15 12:06] VITALS: BMI 29.7
[~2024-04-20 10:42] MED LIST changes: -LACTATED RINGERS 1,000 ML IV SCH; +MIDAZOLAM 2 MG/2 ML VIAL IV PRN; +fentaNYL (PF) 50 MCG/ML 2 ML AMP IV PRN
[2024-04-20 11:12] VITALS: RESP 16; TEMP 97.7
[2024-04-20] MEDS: LACTATED RINGERS 1,000 ML IV SCH (11:19)
[2024-04-20] MEDS: ONDANSETRON 4 MG/2 ML VIAL IVP ONE (11:21)
[2024-04-20] MEDS: DEXAMETHASONE SOD PHOSPHATE 4 MG/ML 1 ML VIAL IV ONE (11:21)
[2024-04-20] MEDS: IV FLUID CONTINUATION 1,000 ML IV ONE (11:23)
[2024-04-20] MEDS: HEPARIN SODIUM,PORCINE 5,000 UNIT/ML 1 ML VIAL SQ STA (12:33)
[2024-04-20] MEDS ORDERED: LIDOCAINE 1% INJ 10MG/ML (20 ML MDV) ONE (12:38)
[2024-04-20] MEDS ORDERED: KETOROLAC 15 MG/ML 1 ML VIAL ONE (12:38)
[2024-04-20] MEDS ORDERED: SUCCINYLCHOLINE CHLORIDE 200 MG/10 ML VIAL IV ONE (12:38)
[2024-04-20] MEDS ORDERED: ROCURONIUM 10 MG/ML (5 ML VIAL) IV ONE (12:38)
[2024-04-20] MEDS ORDERED: PROPOFOL 10 MG/ML 20 ML VIAL IV ONE (12:38)
[2024-04-20] MEDS ORDERED: fentaNYL (PF) 50 MCG/ML 2 ML AMP ONE (12:38)
[2024-04-20] MEDS ORDERED: MIDAZOLAM 2 MG/2 ML VIAL ONE (12:38)
[2024-04-20] MEDS ORDERED: NEOSTIGMINE 1 MG/ML 10 ML VIAL ONE (12:38)
[2024-04-20] MEDS ORDERED: HYDROmorphone (PF) 1 MG/ML ONE (12:38)
[2024-04-20] MEDS ORDERED: GLYCOPYRROLATE 0.2 MG/ML 2 ML VIAL ONE (12:38)
[2024-04-20] MEDS ORDERED: PHENYLEPHRINE 10 MG/ML VIAL ONE (12:38)
[2024-04-20] MEDS: LIDOCAINE 1%-EPI 1:100,000 20 ML VIAL SQ ONE (13:01)
[2024-04-20] MEDS: LACTATED RINGERS 1,000 ML IV ONE (13:34)
[2024-04-20] MEDS: HYDROmorphone 0.5 MG/0.5 ML SYRINGE IVP PRN (14:03)
[2024-04-20 15:19] VITALS: BP 108/71; PULSE 92
--- NOTE | 2024-04-21 20:23 | P.OP ---
Date of Procedure: 04/20/24 Preoperative Diagnosis: Umbilical hernia Postoperative Diagnosis: Umbilical hernia measuring 2 x 3 cm Procedure(s) Performed: Robotic umbilical hernia repair with mesh placement Anesthesia: CHUCKY Surgeon: James Torres Pathology: none sent Condition: stable Disposition: same day Indications for Procedure: 64-year-old male presents today for robotic umbilical hernia repair. He has had an umbilical hernia that has increased in size and began to cause pain. Secondary to this, plan is for repair. Risks, benefits and alternatives including but not limited to risks of bleeding, infection and mesh complications were discussed. All questions were answered. He did provide consent prior to attending the operating suite. Operative Findings: 2 x 3 cm umbilical hernia Description of Procedure: The patient was brought to the operating suite and placed in supine position on the operating table. General anesthesia with endotracheal ovation was performed. Right arm was tucked against the body and footboard was applied. Patient was then prepped and draped in regular sterile fashion. A 5 mm skin incision was made along the left mid axillary line at Oseguera's point and the abdomen was entered under direct visualization using a Visiport. Pneumo peritoneum was achieved. The umbilical hernia was clearly visualized and measured at 2 x 3 cm. An additional 8 mm trocar was placed in the left lower abdomen and left mid abdomen. The initial 5 mm trocar was upsized to an 8 mm trocar. The robot was then docked. Instruments were placed through the trocars. The hernia defect containing preperitoneal fat which was reduced using gentle traction and countertraction method. The falciform ligament was divided using monopolar scissors close to the anterior abdominal wall to create a landing zone for the mesh. A ventral light circular mesh was rolled and introduced to the abdominal cavity. This mesh measured at 12 cm diameter. The hernia defect was then closed primarily with running sutures using oh V-Loc by taking 1 cm bite on the fascia on either side of the defect. A Jimi-Shona device was inserted through the middle of the hernia defect and the stay suture on the mesh was grasped to elevate the mesh against the anterior abdominal wall. The mesh was circumferentially sutured to the peritoneum of the anterior abdominal wall using 2 OV lock without any folds or kinks. The robot was then undocked. All trocar sites were examined. No evidence of bleeding. The middle 8 mm trocar site was closed using 2 trance fascial sutures of 0 Vicryl suture placed with a Jimi Jaramillo device. The pneumoperitoneum was evacuated and the skin incisions were closed with 4-0 Monocryl suture followed by Dermabond skin glue. The sponge, instrument and needle count were correct x 2. Abdominal binder was applied. The patient was extubated and taken to postanesthesia care in stable condition.
== END 2024-04-20 15:52 | disposition home or self-care (01) ==
LOC: OR 10:42
PROVIDERS: ATTEND Surgery
DX: K42.9 Umbilical hernia without obstruction or gangrene (principal); E78.5 Hyperlipidemia, unspecified; M79.7 Fibromyalgia; M19.90 Unspecified osteoarthritis, unspecified site; Z79.1 Long term (current) use of non-steroidal anti-inflammatories (NSAID); Z79.01 Long term (current) use of anticoagulants; Z79.899 Other long term (current) drug therapy; Z87.891 Personal history of nicotine dependence; Z86.711 Personal history of pulmonary embolism; Z88.5 Allergy status to narcotic agent; Z88.8 Allergy status to other drugs, medicaments and biological substances
CPT/HCPCS: 49591; S2900; 88302

== ENCOUNTER → 2024-08-09 | Outpatient (CLI) | payer BC, MEDICARE ==
[2024-08-09 13:30] LABS: African American GFR (CKD) 68 (>60 ml/min/1.73 sqM); Blood Urea Nitrogen 14 mg/dL (9-20); Non-African American GFR(CKD) 59 (>60 ml/min/1.73 sqM)
--- NOTE | 2024-08-09 15:13 | CT ---
EXAMINATION TYPE: CT urogram wo/w con DATE OF EXAM: 08/09/2024 2:43 PM COMPARISON: CT abdomen pelvis most recent from 03/30/2024 CLINICAL INDICATION: Male, 64 years old with history of R82.89 Abn urine cytology; PHH, hematuria TECHNIQUE: Urogram with imaging of the abdomen and pelvis. Coronal and sagittal reformats were performed. 2D and 3D reconstructions are performed to assist visualization of the urinary tract on a separate workstat ion. Contrast used:100 ml mL of Isovue 300 without and with IV Contrast, Oral contrast used: None. CT DLP: 2393.3 mGycm, Automated exposure control for dose reduction was used. FINDINGS: LOWER CHEST: No significant findings. No significant coronary artery atherosclerosis. GENITOURINARY: RIGHT KIDNEY AND URETER: Nonobstructing right testis measures up to 7 mm.. No hydronephrosis or hydro ureter. No renal mass or other lesions. No urothelial lesions: no filling defect, dilation, stricture or wall thickening. LEFT KIDNEY AND URETER: No calculi. No hydronephrosis or hydroureter. No solid renal masses, simple a ppearing renal cyst which does not enhance. No urothelial lesions: no filling defect, dilation, stric ture or wall thickening. URINARY BLADDER: Moderately well distended. Limited evaluation secondary to partial filling of the bl adder with excreted IV contrast. No calculi or obvious mass. REPRODUCTIVE: Unremarkable. ABDOMEN LIVER: Unremarkable GALLBLADDER AND BILE DUCTS: Single gallstone in the gallbladder fundus noted. PANCREAS: Unremarkable. SPLEEN: Unremarkable. ADRENAL GLANDS: Unremarkable. STOMACH AND BOWEL: . No evidence of bowel obstruction. PERITONEUM: No evidence of pneumoperitoneum, free fluid, or adenopathy. VASCULATURE: No evidence of aortic aneurysm. MUSCULOSKELETAL: No acute osseous abnormalities. Moderate disc degeneration changes are present throu ghout the thoracolumbar spine. right hip arthroplasty appears intact. Mild degeneration changes of th e hips. LYMPH NODES: No gross evidence for lymphadenopathy. SOFT TISSUE/ABDOMINAL WALL: Fat-containing umbilical hernia. Fat-containing inguinal hernias bilatera lly. IMPRESSION: 1. Nonobstructing right renal calculus measuring up 7 mm. No evidence for obstructive uropathy. No e vidence for renal mass or urothelial mass given limitations of exam. 2. No evidence for renal malignancy. 3. Left Bosniak type I simple appearing renal cysts. 4. Fat-containing umbilical hernia. 5. Single gallstone in the gallbladder fundus versus wall calcification. [facility], , 08/09/2024 3:11 PM
== END | disposition home or self-care (01) ==
LOC: RADCTMAIN 12:28
PROVIDERS: ATTEND Internal Medicine
DX: N20.0 Calculus of kidney (principal); N28.1 Cyst of kidney, acquired; K42.9 Umbilical hernia without obstruction or gangrene; R82.89 Other abnormal findings on cytological and histological examination of urine
CPT/HCPCS: 82565; 84520; 74178; 36415; 74400; Q9967